=== PATIENT | male | born 1935 | race Caucasian/White ===

== ENCOUNTER 2016-10-07 15:45 | Emergency (ER) | payer OTHER ==
[~2016-10-07] VITALS: Ht 182.9 cm; Wt 110.0 kg
[~2016-10-07 15:45] MED LIST: LEVO.1 PO
[2016-10-07 15:49] VITALS: BP 133/74; PULSE 93; RESP 16; TEMP 97.9; O2SAT 93
--- NOTE | 2016-10-07 15:55 | PD ---
HPI Chief Complaint: Chest Pain Time Seen by Provider: 15:55 Travel History International Travel<30 days: No Contact w/Intl Traveler<30days: No Traveled to known affect area: No History of Present Illness HPI 81-year-old male came to the emergency room with his for left-sided chest pain which occurred after he fell due to tripping and landing on the left side of his chest on ground. This happened at 1 PM. Since then the pain has been progressively worsening. Currently the pain worsens on movement or taking a deep breath. He is splinting his left side of the chest wall by holding it with his hand. He says that helps a little. Patient is on 1 baby aspirin daily. No history of head injury. No history of headache or neck pain. Patient took one nitroglycerin after the incidence happened since he has history of coronary artery disease and thought he should take a nitroglycerin. [facility] Past Medical History Narrative Medical List of his past medical and social history was reviewed from the nursing note. Arthritis: Yes Asthma: Yes Blood Disorders: No Cardiovascular Problems: Yes Endocrine: No GERD: Yes Genitourinary: Yes Hiatal Hernia: Yes Hypertension: Yes Immune Disorder: No Kidney Stones: Yes Musculoskeletal: Yes Neurologic: No Psychiatric: No Reproductive: No Respiratory: Yes Past Surgical History Abdominal Surgery: Yes Eye Surgery: Yes Genitourinary Surgery: Yes Social History Alcohol Use: No Tobacco Use: No Substance Use: No Allergies-Medications (Allergen,Severity, Reaction): Coded Allergies: Onion (Verified Allergy, Severe, SWELLING OF EYES AND LIPS, 08/04/11) Codeine (Verified Adverse Reaction, Severe, UNKNOWN REACTION, 08/04/11) Comments List of his allergies reviewed from the nursing note. Reported Meds & Prescriptions Reported Meds & Active Scripts Active Hydrocodone-Acetaminophen 5-325 mg Tab 1 Tab PO Q6H PRN Reported Metformin (Metformin HCl) 500 Mg Tab 500 Mg PO BIDPC With meals Gabapentin 600 Mg Tab 600 Mg PO HS Pravastatin 80 Mg Tab 80 Mg PO DAILY Nitrostat SL (Nitroglycerin) 0.4 Mg Subl 0.4 Mg SL DIRECTED PRN 1 tablet under the tongue as needed for chest pain. Repeat every 5 minutes for a total of 3 DOSES or call 911 if NO relief. Aspirin EC (Aspirin) 81 Mg Tabdr 81 Mg PO DAILY Finasteride 5 Mg Tab 5 Mg PO DAILY Do not crush. Tamsulosin (Tamsulosin HCl) 0.4 Mg Cap 0.4 Mg PO HS Allopurinol 100 Mg Tab 100 Mg PO DAILY Enalapril (Enalapril Maleate) 20 Mg Tab 20 Mg PO DAILY Levothyroxine (Levothyroxine Sodium) 137 Mcg Tab 137 Mcg PO DAILY Narrative Medication List of his home medications reviewed from the nursing note. Review of Systems Except as stated in HPI: all other systems reviewed are Neg Physical Exam Narrative GENERAL: Awake, alert, elderly, moderate to significant distress SKIN: Warm and dry. HEAD: Atraumatic. Normocephalic. EYES: Pupils equal and round. No scleral icterus. No injection or drainage. ENT: No nasal bleeding or discharge. Mucous membranes pink and moist. NECK: Trachea midline. No JVD. CARDIOVASCULAR: Regular rate and rhythm. No murmur appreciated. RESPIRATORY: No accessory muscle use. Clear to auscultation. Breath sounds equal bilaterally. Severely Tender on the left lateral chest wall on palpation GASTROINTESTINAL: Abdomen soft, non-tender, nondistended. Hepatic and splenic margins not palpable. MUSCULOSKELETAL: No obvious deformities. No clubbing. No cyanosis. No edema. NEUROLOGICAL: Awake and alert. No obvious cranial nerve deficits. Motor grossly within normal limits. Normal speech. PSYCHIATRIC: Appropriate mood and affect; insight and judgment normal. Data Data Last Documented VS Vital Signs Date Time Temp Pulse Resp B/P Pulse Ox O2 Delivery O2 Flow Rate FiO2 10/07/16 18:14 98.2 88 18 138/84 98 10/07/16 16:12 Room Air Orders Basic Metabolic Panel (Bmp) (10/07/16 16:05) Complete Blood Count With Diff (10/07/16 16:05) Prothrombin Time / Inr (Pt) (10/07/16 16:05) Act Partial Throm Time (Ptt) (10/07/16 16:05) Type And Screen (10/07/16 16:05) Iv Access Insert/Monitor (10/07/16 16:05) Ecg Monitoring (10/07/16 16:05) Oximetry (10/07/16 16:05) Oxygen Administration (10/07/16 16:05) Sodium Chloride 0.9% Flush (Ns Flush) (10/07/16 16:15) Morphine Inj (Morphine Inj) (10/07/16 16:15) Ct Abd/Pel W/O Iv Contrast (10/07/16 ) Ct Thorax/ Chest Wo Iv Contras (10/07/16 ) Resp Incentive Spirometry (10/07/16 ) Electrocardiogram (10/07/16 15:57) Labs Laboratory Tests Test 10/07/16 16:15 White Blood Count 7.0 TH/MM3 Red Blood Count 4.60 MIL/MM3 Hemoglobin 14.2 GM/DL Hematocrit 41.2 % Mean Corpuscular Volume 89.6 FL Mean Corpuscular Hemoglobin 30.9 PG Mean Corpuscular Hemoglobin 34.5 % Concent Red Cell Distribution Width 13.6 % Platelet Count 147 TH/MM3 Mean Platelet Volume 8.7 FL Neutrophils (%) (Auto) 65.5 % Lymphocytes (%) (Auto) 17.4 % Monocytes (%) (Auto) 7.6 % Eosinophils (%) (Auto) 8.6 % Basophils (%) (Auto) 0.9 % Neutrophils # (Auto) 4.6 TH/MM3 Lymphocytes # (Auto) 1.2 TH/MM3 Monocytes # (Auto) 0.5 TH/MM3 Eosinophils # (Auto) 0.6 TH/MM3 Basophils # (Auto) 0.1 TH/MM3 CBC Comment DIFF FINAL Differential Comment Prothrombin Time 10.8 SEC Prothromb Time International 1.0 RATIO Ratio Activated Partial 25.7 SEC Thromboplast Time Sodium Level 144 MEQ/L Potassium Level 4.2 MEQ/L Chloride Level 106 MEQ/L Carbon Dioxide Level 30.4 MEQ/L Anion Gap 8 MEQ/L Blood Urea Nitrogen 18 MG/DL Creatinine 1.36 MG/DL Estimat Glomerular Filtration 50 ML/MIN Rate Random Glucose 112 MG/DL Calcium Level 8.7 MG/DL Blood Type A POSITIVE Antibody Screen NEGATIVE [facility] Medical Decision Making Medical Screen Exam Complete: Yes Emergency Medical Condition: Yes Medical Record Reviewed: Yes Interpretation(s) Twelve-lead EKG was reviewed by me. Normal sinus rhythm, left axis deviation, old inferior and anterior AR, nonspecific ST-T wave changes. Heart rate of 87 bpm. Differential Diagnosis Rib fracture, pneumothorax, chest wall contusion, splenic laceration Narrative Course 4:28 PM given the site of his injury and tenderness I have ordered a CT of his chest as well as CT of his abdomen and pelvis to rule out rib fracture, lung contusion, pneumothorax, hemothorax and splenic laceration. Patient has been medicated for pain. Awaiting for the blood test results and the CAT scan to be done and resulted. 5:43 PM patient has a nondisplaced left rib fracture. This corresponds with his physical exam. I've ordered an incentive spirometer. I will discharge the patient home on pain medication prescription. Procedures EKG Prior to Arrival: Yes Diagnosis Primary Impression: Rib fracture Qualified Code: S22.32XA - Closed fracture of one rib of left side, initial encounter Additional Impressions: Blunt chest trauma Qualified Code: S29.8XXA - Blunt chest trauma, initial encounter Fall Qualified Code: W19.XXXA - Fall, initial encounter Referrals: Primary Care Physician 2 days Additional Instructions: Please take the medication as per the prescription direction. Use the incentive spirometer that has been given to you as per the directions every half an hour. Please return to the ER if the condition worsens or any other concerns. Do not drive while on the pain medication since it'll make you groggy. Follow-up with your primary care in couple days. Med/Other Pt SpecificInfo: Prescription(s) given Scripts Hydrocodone-Acetaminophen 5-325 mg Tab1 Tab PO Q6H PRN (PAIN) #20 TAB Ref 0 Prov:John Canseco MD 10/07/16 Disposition: 01 DISCHARGE HOME Condition: Stable John Canseco MD Oct 07, 2016 15:55 John Canseco MD Oct 07, 2016 15:55
[2016-10-07 15:57] VITALS: BP 175/85; PULSE 88; RESP 18; TEMP 98.3; O2SAT 96
[2016-10-07] MEDS ORDERED: FINA5TAB2 PO (16:08)
[2016-10-07] MEDS ORDERED: GABA600T PO (16:08)
[2016-10-07] MEDS ORDERED: PRAV80TA2 PO (16:08)
[2016-10-07] MEDS ORDERED: TAMS0.4C4 PO (16:08)
[2016-10-07] MEDS ORDERED: LEVO137T2 PO (16:08)
[2016-10-07] MEDS ORDERED: ALLO100T PO (16:08)
[2016-10-07] MEDS ORDERED: NITR0.4S SL (16:08)
[2016-10-07] MEDS ORDERED: ASPI81TA11 PO (16:08)
[2016-10-07] MEDS ORDERED: ENAL20TA PO (16:08)
[2016-10-07] MEDS ORDERED: METF500T PO (16:08)
[2016-10-07 16:12] VITALS: RESP 18; O2SAT 94
[2016-10-07] MEDS ORDERED: MORPHINE SULFATE 4 MG/ML INJ IV PUSH ONE (16:15)
[2016-10-07] MEDS ORDERED: SODIUM CHLORIDE 0.9% FLUSH 5 ML FLUSH IVF PRN (16:15)
[2016-10-07 16:42] LABS: AUTOMATED NEUTROPHIL # 4.6 TH/MM3 (1.8-7.7); BASOPHIL # 0.1 TH/MM3 (0-0.2); BASOPHIL % 0.9 % (0.0-2.0); EOSINOPHIL # 0.6 TH/MM3 (0-0.4); EOSINOPHIL % 8.6 % (0.0-4.0); HEMATOCRIT 41.2 % (39.0-51.0); HEMO FLAGS DIFF FINAL; LYMPH % 17.4 % (9.0-44.0); LYMPHOCYTE # 1.2 TH/MM3 (1.0-4.8); MEAN CELL VOLUME 89.6 FL (80.0-100.0); MEAN CORPUSCULAR HEMOGLOBIN 30.9 PG (27.0-34.0); MEAN CORPUSCULAR HGB CONC 34.5 % (32.0-36.0); MONO % 7.6 % (0.0-8.0); NEUT % 65.5 % (16.0-70.0); PLATELET COUNT 147 TH/MM3 (150-450); RED CELL DISTRIBUTION WIDTH 13.6 % (11.6-17.2)
[2016-10-07 16:53] LABS: APTT (PATIENT) 25.7 SEC (24.3-30.1); PROTHROMBIN TIME - PATIENT 10.8 SEC (9.8-11.6)
--- NOTE | 2016-10-07 16:55 | RADRPT ---
EXAM DATE/TIME: 10/07/2016 16:28 [facility] COMPARISON: No previous studies available for comparison. INDICATIONS : Trauma; slip and fall, left sided pain. RADIATION DOSE: 19.26 CTDIvol (mGy) ; Combined studies - Thorax/Abdomen/Pelvis MEDICAL HISTORY : Hypertension. Renal calculi. Hernia, hiatal. AAA. SURGICAL HISTORY : None. ENCOUNTER: Initial ACUITY: 1 day PAIN SCALE: 5/10 LOCATION: Left chest TECHNIQUE: Volumetric scanning of the chest was performed. Using automated exposure control and adjustment of t he mA and/or kV according to patient size, radiation dose was kept as low as reasonably achievable to obtain optimal diagnostic quality images. FINDINGS: There is minimal dependent atelectasis at the lung bases. No pleural or pericardial effusion. No medi astinal hematoma. Moderate to severe coronary calcifications. Questionable nondisplaced left lower an terior rib fracture. No pneumothorax. CONCLUSION: 1. Questionable nondisplaced left lower anterior rib fracture. No acute findings within the thorax. M oderate to severe coronary calcifications. Javon Ingram MD on October 07, 2016 at 16:48 Board Certified Radiologist. This report was verified electronically.
--- NOTE | 2016-10-07 16:57 | RADRPT ---
EXAM DATE/TIME: 10/07/2016 16:28 [facility] COMPARISON: No previous studies available for comparison. INDICATIONS : Trauma; slip and fall, left sided pain. ORAL CONTRAST: No oral contrast ingested. RADIATION DOSE: 19.26 CTDIvol (mGy) ; Combined studies - Thorax/Abdomen/Pelvis MEDICAL HISTORY : Hypertension. Hernia, hiatal. Renal calculi.AAA. SURGICAL HISTORY : None. ENCOUNTER: Initial ACUITY: 1 day PAIN SCALE: 8/10 LOCATION: Left abdomen. TECHNIQUE: Volumetric scanning of the abdomen and pelvis was performed. Using automated exposure control and ad justment of the mA and/or kV according to patient size, radiation dose was kept as low as reasonably achievable to obtain optimal diagnostic quality images. FINDINGS: Lung bases are relatively clear except minimal atelectasis. No acute findings in the liver, spleen, a drenals or pancreas. Previous cholecystectomy. Bilateral renal cysts noted. No free fluid. No retroperitoneal hematoma. There is colonic diverticulosis without evidence for dive rticulitis. Previous fusion lower lumbar spine. No acute bony abnormalities. CONCLUSION: 1. No acute findings within the abdomen and pelvis. Small hiatal hernia. Cholecystectomy. Bilateral r enal cysts. Colonic diverticulosis. Javon Ingram MD on October 07, 2016 at 16:54 Board Certified Radiologist. This report was verified electronically.
[2016-10-07 17:10] LABS: BICARBONATE 30.4 MEQ/L (21.0-32.0); POTASSIUM 4.2 MEQ/L (3.5-5.1)
[2016-10-07] MEDS ORDERED: HYDR-3516 PO (17:45)
[2016-10-07 18:14] VITALS: BP 138/84; TEMP 98.2
--- NOTE | 2016-10-08 14:55 | EKG ---
Date Performed: 10/07/2016 Time Performed: 15:57:19 PTAGE: 81 years EKG: Sinus rhythm MARKED LEFT AXIS DEVIATION MODERATE VOLTAGE CRITERIA FOR LVH, CONSIDER NORMAL VARIANT POSSIBLE ANTER IOR MYOCARDIAL INFARCTION When compared to previous tracing, axis more leftward, otherwise No signifi cant change. ABNORMAL ECG PREVIOUS TRACING : 10/30/2011 08.09 DOCTOR: Gabino Ruiz Interpretating Date/Time 10/08/2016 15:40:52
== END 2016-10-07 19:13 | disposition home or self-care (01) ==
LOC: NEPE 15:45
DX: S22.32XA Fracture of one rib, left side, initial encounter for closed fracture (principal); S29.8XXA Other specified injuries of thorax, initial encounter; R94.31 Abnormal electrocardiogram [ECG] [EKG]; I25.10 Atherosclerotic heart disease of native coronary artery without angina pectoris; I10 Essential (primary) hypertension; Z79.82 Long term (current) use of aspirin; Z87.39 Personal history of other diseases of the musculoskeletal system and connective tissue; Z87.09 Personal history of other diseases of the respiratory system; Z86.79 Personal history of other diseases of the circulatory system; Z87.19 Personal history of other diseases of the digestive system; Z87.448 Personal history of other diseases of urinary system; W01.0XXA Fall on same level from slipping, tripping and stumbling without subsequent striking against object, initial encounter
CPT/HCPCS: 71250; 74176; 80048; 85025; 85610; 85730; 86850; 86900; 86901; 93005; 96374; 99284; J2270

== ENCOUNTER → 2016-11-02 | Outpatient (CLI) | payer OTHER ==
[~2016-11-02] MED LIST changes: +ALLO100T PO; +ASPI81TA11 PO; +ENAL20TA PO; +FINA5TAB2 PO; +GABA600T PO; +HYDR-3516 PO; -LEVO.1 PO; +LEVO137T2 PO; +METF500T PO; +NITR0.4S SL; +PRAV80TA2 PO; +TAMS0.4C4 PO
--- NOTE | 2016-11-10 12:45 | RSPPFT ---
DATE OF PROCEDURE: 11/02/16 COMMENTS: VOLUMES DYNAMIC: FVC and FEV1 mildly reduced. STATIC: RV mildly increased; VTG and TLC normal. FLOWS: FEV1% mildly reduced; FEF 25-75 severely reduced. DIFFUSION: Normal. FLOW VOLUME LOOP: Terminal airflow obstruction. IMPRESSION: Mild obstructive ventilatory defect with mild hyperinflation and normal diffusion. There is significant improvement post-bronchodilator consistent with an asthmatic problem.
== END ==
LOC: HRSP 13:18
PROVIDERS: ATTEND Internal Medicine
DX: J45.909 Unspecified asthma, uncomplicated (principal)
CPT/HCPCS: 94060; 94620; 94726; 94729

== ENCOUNTER 2016-12-27 05:34 | Observation (INO) | payer OTHER ==
[2016-12-27] VITALS (7 sets, daily range): BP systolic 157–193; BP diastolic 82–104; PULSE 69–85; RESP 12–20; TEMP 96–97.6; O2SAT 54–96
[~2016-12-27] VITALS: Ht 182.9 cm; Wt 105.0 kg
[~2016-12-27 05:34] MED LIST changes: -HYDR-3516 PO
[2016-12-27] MEDS ORDERED: POVIDONE IODINE 5% (ANTISEPSIS KIT) 4 APPLICATIONS EACH NARE PRN (06:00)
[2016-12-27] MEDS ORDERED: CHLORHEXIDINE GLUCONATE 2 % 1 PACK (2 CLOTHS) TOPICAL PRN (06:00)
[2016-12-27] MEDS ORDERED: METOPROLOL TARTRATE 25 MG TAB PO PRN (06:00)
[2016-12-27] MEDS ORDERED: SODIUM CHLORID 0.9% 500 ML IV PRN (06:00)
[2016-12-27] MEDS ORDERED: INSULIN HUMAN REGULAR 1,000 UNITS/10 ML VIAL SQ PRN (06:00)
[2016-12-27] MEDS: LACTATED RINGER'S 1000 ML IV PRN ×2 (06:30→09:17)
[2016-12-27] MEDS: AMPICILLIN/SULBAC 3 GM/NS 100 ML IV SCH ×4 (06:49→09:16)
[2016-12-27] MEDS ORDERED: MIDAZOLAM HCL 2 MG/2 ML VIAL ONE (06:57)
[2016-12-27] MEDS ORDERED: fentaNYL CITRATE 250 MCG/5 ML AMP ONE (06:57)
[2016-12-27] MEDS ORDERED: ACETAMINOPHEN 1000 MG/100 ML VIAL IV ONE (06:57)
[2016-12-27] MEDS ORDERED: BACITRACIN TOP OINT 15 GM TUBE ONE (07:05)
[2016-12-27] MEDS ORDERED: OXYMETAZOLINE HCL 0.05% 15 ML NASAL SPRAY ONE (07:05)
[2016-12-27] MEDS ORDERED: LIDOCAINE 1%/EPINEPHrine 1:100,000 SOLN 20 ML VIAL ONE ×2 (07:05→07:13)
[2016-12-27] MEDS ORDERED: HYDROCORTISONE SOD SUCCINATE 100 MG VIAL ONE (07:24)
[2016-12-27] MEDS ORDERED: ONDANSETRON HCL 4 MG/2 ML VIAL IV PUSH PRN (09:00)
[2016-12-27] MEDS ORDERED: ACETAMINOPHEN/HYDROcodone 325 MG/5 MG TAB PO PRN (09:00)
[2016-12-27] MEDS: LACTATED RINGER'S 1000 ML INJ 1,000 ML IV SCH ×2 (09:10→21:30)
[2016-12-27] MEDS ORDERED: PROPOFOL 200 MG/20 ML AMP IV ONE (12:00)
[2016-12-27] MEDS ORDERED: ONDANSETRON HCL 4 MG/2 ML VIAL IV PUSH ONE (12:00)
[2016-12-27] MEDS ORDERED: ePHEDrine/NS 25 MG/5 ML SYR IV ONE (12:00)
[2016-12-27] MEDS ORDERED: LACTATED RINGER'S 1000 ML INJ 1,000 ML IV ONE (12:00)
[2016-12-27] MEDS ORDERED: PRAVASTATIN SOD 80 MG TAB PO SCH (12:50)
[2016-12-27] MEDS ORDERED: FINASTERIDE 5 MG TAB PO SCH (12:52)
[2016-12-27] MEDS ORDERED: NITROGLYCERIN 0.4 MG SL 25 TABS/BTL SL PRN (13:00)
[2016-12-27] MEDS ORDERED: ENALAPRIL MALEATE 10 MG TAB PO ONE (13:00)
[2016-12-27] MEDS: GABAPENTIN 300 MG CAP PO SCH ×2 (14:31→18:12)
[2016-12-27] MEDS: AMPICILLIN/SULBAC 1500 MG/NS 100 ML IV SCH ×4 (15:56→23:27)
[2016-12-27] MEDS: metFORMIN HCL 500 MG TAB PO SCH ×2 (18:00→18:13)
[2016-12-27] MEDS ORDERED: TAMSULOSIN HCL 0.4 MG CAP PO SCH (21:00)
[2016-12-28 00:05] VITALS: BP 163/84; PULSE 68; RESP 17; TEMP 97; O2SAT 98
[2016-12-28] MEDS ORDERED: LEVOTHYROXINE SODIUM 25 MCG TAB PO SCH (06:00)
[2016-12-28] MEDS ORDERED: LEVOTHYROXINE SODIUM 112 MCG TAB PO SCH (06:00)
[2016-12-28] MEDS: AMPICILLIN/SULBAC 1500 MG/NS 100 ML IV SCH ×2 (07:00)
[2016-12-28] MEDS ORDERED: ENALAPRIL MALEATE 10 MG TAB PO SCH (09:00)
[2016-12-28] MEDS ORDERED: ALLOPURINOL 100 MG TAB PO SCH (09:00)
--- NOTE | 2017-01-08 07:20 | MP ---
cc: EBEN LEWIS M.D. DATE OF OPERATION December 27, [address] Eben Lewis PREOPERATIVE DIAGNOSES 1. Chronic pansinusitis. 2. Sinonasal polyposis. 3. Nasal airway obstruction. 4. Nasal septal deviation. 5. Hypertrophy of inferior turbinates. POSTOPERATIVE DIAGNOSES 1. Chronic pansinusitis. 2. Sinonasal polyposis. 3. Nasal airway obstruction. 4. Nasal septal deviation. 5. Hypertrophy of inferior turbinates. OPERATION PERFORMED 1. Open repair of nasal septal fracture. 2. Bilateral submucosal resection of inferior turbinates. 3. Bilateral endoscopic debridement of nasal polyps. INDICATIONS Documented in the history and physical. DESCRIPTION OF OPERATION The patient was taken to OR #6 and placed in the supine position. Following induction of general anesthesia and intubation, the nose was packed bilaterally with cotton pledgets saturated in 0.05% oxymetazoline. The nasal septum and inferior turbinates were injected with a total of 60 mL of 1% Xylocaine with epinephrine 1:100,000. He was then prepped and draped for surgery. Nasal packing was removed and a hemitransfixion incision was made in the left nasal vestibule and through this incision the mucosa of septum was elevated bilaterally as far as the junction of the bony and cartilaginous septum. This revealed very thick, twisted and irregular quadrangular cartilage with evidence of old septal fracture. A cumulative area of 2 x 2.5 cm of quadrangular cartilage was removed, preserving 1.5 cm dorsal and caudal struts. The mucosa was then elevated from the bony septum and the maxillary crest. The bony septum was removed using Salisbury-Ornelas forceps and Ashok septal forceps. The maxillary crest was removed using a 6-mm Sallie chisel. The incision was then closed with a running suture of 4-0 chromic and the mucosal layers of the septum were approximated to each other with a quilting stitch of 4-0 plain gut. The inferior turbinates were addressed next. These were fractured out medially and stab incisions were made along their inferior surfaces and through these incisions the submucosal soft tissue was reduced using a curette and preserving the conchal bone and soft tissue was reduced approximately 30%. The incision was then cauterized using the suction Bovie at 35 mccarthy. The remnants of the inferior turbinates were then we lateralized to the lateral nasal wall. When this was completed, there was ample access to the posterior nasal vault which was obstructed bilaterally by polypoid tissue prolapsing from the middle and superior meatus. Large biopsies were obtained from these polyps bilaterally and were submitted labeled left and right for histological examination. The remainder of the polypoid tissue was removed using powered microdebrider until the nasal vault was completely patent. The nose was then irrigated with chilled saline. The superior nasal vault was filled with Stammberger sinus foam and the inferior half was packed with Merocel tampons coated in bacitracin ointment. The procedure was then terminated. The patient was reversed from anesthesia and taken to Recovery in good condition. There were no complications. Blood loss was 200 mL. Eben Lewis MD [facility] /10:13 AM /7:16 AM
== END 2016-12-28 07:18 | disposition home or self-care (01) ==
LOC: HSDC 05:34 → N06B 09:59
PROVIDERS: ADMIT Otolaryngology; ATTEND Otolaryngology
DX: J32.4 Chronic pansinusitis (principal); J33.9 Nasal polyp, unspecified; J98.8 Other specified respiratory disorders; J34.2 Deviated nasal septum; J34.3 Hypertrophy of nasal turbinates; I10 Essential (primary) hypertension; E78.5 Hyperlipidemia, unspecified; E11.40 Type 2 diabetes mellitus with diabetic neuropathy, unspecified; K21.9 Gastro-esophageal reflux disease without esophagitis; E66.9 Obesity, unspecified; E03.9 Hypothyroidism, unspecified; J45.909 Unspecified asthma, uncomplicated; Z68.31 Body mass index [BMI] 31.0-31.9, adult; Z88.5 Allergy status to narcotic agent; Z91.018 Allergy to other foods; Z79.84 Long term (current) use of oral hypoglycemic drugs
CPT/HCPCS: 00160; 21325; 30140; 31237; 88304; 88311; 94762; G0378; J0131; J0295; J2405; J3010; J7120; J1720; J2250

== ENCOUNTER 2017-08-28 16:42 | Inpatient (IN) | payer OTHER, MEDICARE ==
[2017-08-28] VITALS (15 sets, daily range): BP systolic 142–200; BP diastolic 69–93; PULSE 57–67; RESP 16–22; TEMP 97.9; O2SAT 92–98
[2017-08-28] MEDS: ONDANSETRON HCL 4 MG/2 ML VIAL IV PUSH PRN
[~2017-08-28 16:42] MED LIST changes: -ASPI81TA11 PO; +ASPI81TA23 PO; +IODIXANOL 320 MG/ML 50 ML VIAL (for RAD SPEC) I-ARTERIAL ONE
[2017-08-28] MEDS ORDERED: SODIUM CHLOR 0.9% 1000 ML INJ 1,000 ML IV ONE (16:48)
--- NOTE | 2017-08-28 17:04 | RADRPT ---
EXAM DATE/TIME: 08/28/2017 16:54 [facility] COMPARISON: No previous studies available for comparison. INDICATIONS : Stroke alert, expressive aphasia, right side weakness. RADIATION DOSE: 39.68 CTDIvol (mGy) These findings were called by Dr. aLu to Dr. Ariza in the emergency room at 1701 hrs. MEDICAL HISTORY : Non-responsive. SURGICAL HISTORY : Non-responsive. ENCOUNTER: Initial ACUITY: 1 day PAIN SCALE: Non-responsive LOCATION: cranial TECHNIQUE: Multiple contiguous axial images were obtained of the head. Using automated exposure control and adj ustment of the mA and/or kV according to patient size, radiation dose was kept as low as reasonably a chievable to obtain optimal diagnostic quality images. DICOM format image data is available electro nically for review and comparison. FINDINGS: CEREBRUM: The ventricles are normal for age. No evidence of midline shift, mass lesion, hemorrhage or acute in farction. No extra-axial fluid collections are seen. POSTERIOR FOSSA: The cerebellum and brainstem are intact. The 4th ventricle is midline. The cerebellopontine angle i s unremarkable. EXTRACRANIAL: The visualized portion of the orbits is intact. SKULL: The calvaria is intact. No evidence of skull fracture. CONCLUSION: 1. Small chronic area of encephalomalacia involving the left frontal lobe. 2. No acute hemorrhage or mass effect. Girma Lau MD on August 28, 2017 at 16:59 Board Certified Radiologist. This report was verified electronically.
[2017-08-28 17:09] LABS: AUTOMATED NEUTROPHIL # 5.3 TH/MM3 (1.8-7.7); BASOPHIL # 0.1 TH/MM3 (0-0.2); EOSINOPHIL # 0.3 TH/MM3 (0-0.4); EOSINOPHIL % 3.6 % (0.0-4.0); HEMATOCRIT 40.5 % (39.0-51.0); HEMOGLOBIN 13.8 GM/DL (13.0-17.0); LYMPH % 22.6 % (9.0-44.0); LYMPHOCYTE # 1.9 TH/MM3 (1.0-4.8); MEAN CELL VOLUME 92.1 FL (80.0-100.0); MEAN CORPUSCULAR HEMOGLOBIN 31.5 PG (27.0-34.0); MEAN CORPUSCULAR HGB CONC 34.2 % (32.0-36.0); MEAN PLATELET VOLUME 8.6 FL (7.0-11.0); MONOCYTE # 0.7 TH/MM3 (0-0.9); NEUT % 63.8 % (16.0-70.0); PLATELET COUNT 155 TH/MM3 (150-450); RED BLOOD COUNT 4.39 MIL/MM3 (4.50-5.90); RED CELL DISTRIBUTION WIDTH 13.9 % (11.6-17.2); WHITE BLOOD COUNT 8.3 TH/MM3 (4.0-11.0)
--- NOTE | 2017-08-28 17:25 | PD.CONS ---
History of Present Illness Service Neurology Consult Requested By er Reason for Consult stroke alert Primary Care Physician Unknown History of Present Illness 81 y/o m comes to er as a stroke alert. onset approx <1 hr prior to arrival .was driving when suddenly his rt side become weak. next to him and verifies hx. no hx of known stroke to them. not on any bloodthinners. no hx of sz. ct brain- old left frontal infarct. glucose 132 denies any headache/dyspnea/cp. no hx of afib. Past Medical History Arthritis: Yes Asthma: Yes Blood Disorders: No Cardiovascular Problems: Yes Endocrine: No GERD: Yes Genitourinary: Yes Hiatal Hernia: Yes Hypertension: Yes Respiratory: Yes Past Surgical History Abdominal Surgery: Yes Eye Surgery: Yes Genitourinary Surgery: Yes Social History Alcohol Use: No Tobacco Use: No Substance Use: No Allergies-Medications (Allergen,Severity, Reaction): Coded Allergies: Onion (Verified Allergy, Severe, SWELLING OF EYES AND LIPS, 08/04/11) Codeine (Verified Adverse Reaction, Severe, UNKNOWN REACTION, 08/04/11) Comments List of his allergies reviewed from the nursing note. Reported Meds & Prescriptions Reported Meds & Active Scripts Active Hydrocodone-Acetaminophen 5-325 mg Tab 1 Tab PO Q6H PRN Reported Metformin (Metformin HCl) 500 Mg Tab 500 Mg PO BIDPC With meals Gabapentin 600 Mg Tab 600 Mg PO HS Pravastatin 80 Mg Tab 80 Mg PO DAILY Nitrostat SL (Nitroglycerin) 0.4 Mg Subl 0.4 Mg SL DIRECTED PRN 1 tablet under the tongue as needed for chest pain. Repeat every 5 minutes for a total of 3 DOSES or call 911 if NO relief. Aspirin EC (Aspirin) 81 Mg Tabdr 81 Mg PO DAILY Finasteride 5 Mg Tab 5 Mg PO DAILY Do not crush. Tamsulosin (Tamsulosin HCl) 0.4 Mg Cap 0.4 Mg PO HS Allopurinol 100 Mg Tab 100 Mg PO DAILY Enalapril (Enalapril Maleate) 20 Mg Tab 20 Mg PO DAILY Levothyroxine (Levothyroxine Sodium) 137 Mcg Tab 137 Mcg PO DAILY Review of Systems Except as stated in HPI: all other systems reviewed are Neg Review of Systems All other ROS: ROS reviewed as documented in chart Past Family Social History Allergies: Coded Allergies: onion (Unverified Allergy, Severe, SWELLING OF EYES AND LIPS, 08/28/17) codeine (Unverified Adverse Reaction, Severe, UNKNOWN REACTION, 08/28/17) Active Ordered Medications Current Medications Medications (Trade) Dose Ordered Sig/Kaye Route Start Time Stop Time Status Last Admin Sodium Chloride 1,000 ml @ 70 mls/hr [id number] ONCE IV 08/28/17 16:48 08/29/17 07:05 Exam I&O / VS Vital Signs Date Time Temp Pulse Resp B/P (MAP) Pulse Ox O2 Delivery O2 Flow Rate FiO2 08/28/17 17:07 61 18 181/92 (121) 92 Room Air 08/28/17 16:51 96 Room Air 08/28/17 16:51 96 Room Air 08/28/17 16:45 97.9 65 18 172/82 (112) 98 General: Alert and Oriented, No acute distress Eye: EOMI Respiratory: Lungs CTA, Non-labored respirations Cardiology: Normal rate Neurologic: Alert Psychiatric: Cooperative Exam Comments ox 3, slwo speech/dysfluency but articulate, able to name objects and follow. eomi, no gaze preference, face sym, vff, rt hemiplegia 0/5 strength, maria dolores le reduced pin (hx of neuropathy), dysmetria proportional to level of weakness in ue, nihss 8 Review/Management Diagnosis/Plan: (1) Acute ischemic left MCA stroke ICD Codes: I63.512 - Cerebral infarction due to unspecified occlusion or stenosis of left middle cerebral artery Status: Acute Plan: acute left lacunar infarct, probably left mca previous left frontal infarct r/o left mca stenosis/carotid dz/small vessel vs afib recs iv tpa d/w pt and spouse. would like to proceed with tx. understand risk of 6% ich, systemic bleeding. alternatives d/w. bp 178/93 at time of iv bolus bp <180/100; nicardipine gtt as needed. no blood thinners post tpa protocol isc admission stat cta's to r/o large vessel occlusion mri/echo scd's f/u exam over 90 minutes spent on image review/re-examine/discussion with md (2) Chronic ischemic left MCA stroke ICD Codes: I69.30 - Unspecified sequelae of cerebral infarction Status: Chronic (3) HTN (hypertension) ICD Codes: I10 - Essential (primary) hypertension Status: Chronic Problem Qualifiers (1) HTN (hypertension): Qualified Codes: I10 - Essential (primary) hypertension Quoc Harrington MD Aug 28, 2017 17:25
[2017-08-28 17:28] LABS: PROTHROMBIN TIME - PATIENT 10.6 SEC (9.8-11.6)
[2017-08-28] MEDS ORDERED: ALTEPLASE BOLUS 9 MG/9 ML SYR IV ONE (17:30)
[2017-08-28] MEDS ORDERED: MISCELLANEOUS NURSING INFORMATION XX PRN (17:30)
[2017-08-28] MEDS ORDERED: ALTEPLASE DRIP 81 MG in SYRINGE/BAG 1 EA IV ONE (17:30)
[2017-08-28] MEDS ORDERED: SODIUM CHLORIDE 0.9% 50 ML BAG IVF ONE (17:30)
[2017-08-28] MEDS ORDERED: niCARdipine INJ 25 MG in SODIUM CHLOR 0.9% 250 ML INJ 240 ML IV PRN (17:30)
[2017-08-28 17:39] LABS: TROPONIN I LESS THAN 0.02 NG/ML (0.02-0.05)
[2017-08-28] MEDS ORDERED: FINA5TAB2 PO (17:54)
[2017-08-28] MEDS ORDERED: AMLO5TAB2 PO (17:54)
[2017-08-28] MEDS ORDERED: LEVO137T2 PO (17:54)
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
[2017-08-28 18:24] LABS: BILIRUBIN, URINE NEG (NEG); BLOOD, URINE NEG (NEG); GLUCOSE,URINE NEG (NEG); KETONE, URINE NEG (NEG); MUCUS URINE FEW /lpf (OCC); NITRITE,URINE NEG (NEG); URINE COLOR LIGHT-YELLOW (YELLW/STRAW); URINE LEUKOCYTE ESTERASE LARGE (NEG); WHITE BLOOD CELL CLUMPS RARE
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
[2017-08-28] MEDS ORDERED: CHLORHEXIDINE GLUCONATE 2 % 1 PACK (2 CLOTHS) TOP PRN (18:45)
[2017-08-28] MEDS ORDERED: SENNOSIDES 8.6 MG TAB PO PRN (18:45)
[2017-08-28] MEDS ORDERED: MAGNESIUM HYDROXIDE SUSP 30 ML CUP PO PRN (18:45)
[2017-08-28] MEDS ORDERED: BISACODYL 10 MG SUPP RECTAL PRN (18:45)
[2017-08-28] MEDS ORDERED: LACTULOSE SYRUP 20 GM/30 ML CUP PO PRN (18:45)
[2017-08-28] MEDS ORDERED: RESP: ALBUTEROL 2.5 MG/IPRATROPIUM 0.5 MG NEB (PRN) INH (18:45)
[2017-08-28] MEDS ORDERED: MISCELLANEOUS NURSING INFORMATION XX SCH (18:45)
[2017-08-28] MEDS ORDERED: SODIUM CHLORIDE 0.9% FLUSH 10 ML FLUSH IV FLUSH PRN (18:45)
[2017-08-28 19:07] LABS: CHOLESTEROL 183 MG/DL (120-200)
--- NOTE | 2017-08-28 19:10 | RADRPT ---
EXAM DATE/TIME: 08/28/2017 18:11 [facility] COMPARISON: No previous studies available for comparison. INDICATIONS : Cerebrovascular accident. MEDICAL HISTORY : Gastroesophageal reflux disease. Hypertension. Aneurysm, abdominal. Thyroid disease. Hearing loss. As thma. Hiatal hernia. Renal calculi. Osteoarthritis. Diabetes. Neuropathy. SURGICAL HISTORY : Cholecystectomy. Appendectomy. Tonsillectomy. Right shoulder surgery. Left knee surgery. Bilateral ca taract removal. ENCOUNTER: Initial ACUITY: 1 day PAIN SCORE: 0/10 LOCATION: Bilateral neck PEAK SYSTOLIC VELOCITIES (cm/sec): ICA/CCA RATIO: Right: 5.7 Left: 0.9 ICA: Right: 322 Left: 72 CCA: Right: 57 Left: 77 ECA: Right: 93 Left: 81 VERTEBRAL: Right: 52 antegrade Left: 51 antegrade Elevated flow velocities and ICA/CCA ratios have been found to correlate with increased degrees of vessel stenosis, calculated as percentage of diameter relative to a normal segment of distal ICA/CCA FINDINGS: RIGHT CAROTID: Severe plaque seen in the bulb and proximal internal carotid artery. LEFT CAROTID: There is mild plaque at the bulb and proximal internal carotid artery. VERTEBRAL ARTERIES: Antegrade flow is seen in both vertebral arteries. MISCELLANEOUS: None. CONCLUSION: 1. Severe atherosclerosis of the right carotid bifurcation with high-grade and hemodynamically signif icant stenosis of the proximal ICA. 2. Mild atherosclerosis of the left carotid bifurcation without narrowing. River Tejada MD on August 28, 2017 at 19:06 Board Certified Radiologist. This report was verified electronically.
[2017-08-28] MEDS ORDERED: IOHEXOL 350 MG/ML 10 ML VIAL (for RAD DIAG) IVCONTRAST ONE (19:14)
--- NOTE | 2017-08-28 19:23 | RADRPT ---
EXAM DATE/TIME: 08/28/2017 18:43 [facility] COMPARISON: US CAROTID ARTERIES, August 28, 2017, 18:11. CT BRAIN W/O CONTRAST, August 28, 2017, 16:54. INDICATIONS : Stroke Alert- Right sided weakness. IV CONTRAST: 80 cc Omnipaque 350 (iohexol) IV RADIATION DOSE: 10.68 CTDIvol (mGy) ; Combined studies MEDICAL HISTORY : Diabetes mellitus type 2. Hypertension. Hiatal hernia, Asthma, Cardiac. SURGICAL HISTORY : None. ENCOUNTER: Initial ACUITY: 1 day PAIN SCALE: Non-responsive LOCATION: Right cranial TECHNIQUE: Volumetric scanning was performed using a multi-row detector CT scanner. The data was post processed with a variety of visualization algorithms including full volume maximum intensity projection, multi -planar sliding thin slab reformation, curved planar reformation, and surface rendering techniques. Using automated exposure control and adjustment of the mA and/or kV according to patient size, radiat ion dose was kept as low as reasonably achievable to obtain optimal diagnostic quality images. DICO M format image data is available electronically for review and comparison. FINDINGS: Approximately 5 mm long thrombus is seen distally of the left middle cerebral artery, just before the trifurcation. The thrombus is nonocclusive with filling of the branches distal to it demonstrated. N o other vessel thrombosis demonstrated. There is very mild intracranial atherosclerosis. More moderat e atherosclerosis seen of both internal carotid arteries at the level of the skull base but without e vidence of significant narrowing or acute thrombosis at this location. No aneurysm demonstrated. CONCLUSION: Short segment, nonocclusive thrombosis of the left middle cerebral artery. Please see above. River Tejada MD on August 28, 2017 at 19:17 Board Certified Radiologist. This report was verified electronically.
[2017-08-28 19:31] LABS: CHOLESTEROL/ HDL RATIO 4.35 RATIO; LDL CHOLESTEROL 87 MG/DL (0-99); TRIGLYCERIDES 271 MG/DL (42-150)
--- NOTE | 2017-08-28 19:57 | RADRPT ---
EXAM DATE/TIME: 08/28/2017 19:18 [facility] COMPARISON: CT BRAIN W/O CONTRAST, August 28, 2017, 16:54. INDICATIONS : CVA. Post TPA. MEDICAL HISTORY : Hypertension. Diabetes. Thyroid disease. Gout. SURGICAL HISTORY : Fusion, lumbar. Appendectomy. Cholecystectomy. Tonsillectomy. Cataracts. Knee. Nose. Shoulder. ENCOUNTER: Subsequent ACUITY: 1 day PAIN SCORE: 3/10 LOCATION: cranial TECHNIQUE: Multiplanar, multisequence MRI of the brain was performed without contrast. FINDINGS: CEREBRUM: The ventricles are normal for age. No evidence of midline shift, mass lesion, hemorrhage or acute in farction. No extraaxial fluid collections are seen. The pituitary gland and suprasellar cistern are normal in configuration. Small area of encephalomalacia again seen in the left frontal lobe. WHITE MATTER: Mild to moderate scattered small foci of chronic flair signal abnormality seen of both cerebral hemis pheres. POSTERIOR FOSSA: The cerebellum and brainstem are intact. The 4th ventricle is midline. The cerebellopontine angle is unremarkable. The cerebellar tonsils are normal in position. DIFFUSION IMAGING: No focal areas of restricted diffusion are seen. No evidence of acute infarction. EXTRACRANIAL: There is mucoperiosteal thickening and mucus retention cysts of the visualized paranasal sinuses. CONCLUSION: 1. No acute infarct. 2. Old, small left frontal lobe cortical infarct. 3. Mild to moderate chronic white matter changes. 4. Paranasal sinus disease. River Tejada MD on August 28, 2017 at 19:53 Board Certified Radiologist. This report was verified electronically.
--- NOTE | 2017-08-28 19:59 | RADRPT ---
EXAM DATE/TIME: 08/28/2017 19:18 [facility] COMPARISON: CTA BRAIN W 3D RECON, August 28, 2017, 18:43. INDICATIONS : CVA. MEDICAL HISTORY : Hypertension. Diabetes. Thyroid disease. Gout. SURGICAL HISTORY : Fusion, lumbar. Appendectomy. Cholecystectomy. Tonsillectomy. Cataracts. Knee. Nose. Shoulder. ENCOUNTER: Subsequent ACUITY: 1 day PAIN SCORE: 3/10 LOCATION: cranial Please note a normal MRA of the brain does not entirely exclude the possibility of a small aneurysm, nor the possibility of distal intracranial vessel disease. TECHNIQUE: 3D time of flight MRA was performed. Source images, multiplanar STS MIP, and 3D volume MIP reconstru ctions were reviewed. FINDINGS: Short segment non-filling seen distally of the left M1 segment. There is filling of the branch vessel s distal. Otherwise, mild, patchy luminal irregularity of the intracranial arteries typical of mild a therosclerotic disease. No other areas of significant occlusion are demonstrated. No aneurysm. CONCLUSION: Nonocclusive thrombus distally of the left middle cerebral artery. River Tejada MD on August 28, 2017 at 19:55 Board Certified Radiologist. This report was verified electronically.
--- NOTE | 2017-08-28 20:03 | RADRPT ---
EXAM DATE/TIME: 08/28/2017 18:43 [facility] COMPARISON: No previous studies available for comparison. INDICATIONS : Stroke Alert- Right sided weakness. IV CONTRAST: 80 cc Omnipaque 350 (iohexol) IV RADIATION DOSE: 10.68 CTDIvol (mGy) MEDICAL HISTORY : Diabetes mellitus type 2. Hypertension. Hiatal hernia, Asthma, Cardiac. SURGICAL HISTORY : None. ENCOUNTER: Initial ACUITY: 1 day PAIN SCALE: Non-responsive LOCATION: Right cranial Elevated flow velocities and ICA/CCA ratios have been found to correlate with increased degrees of vessel stenosis, calculated as percentage of diameter relative to a normal segment of distal ICA/CCA. TECHNIQUE: Volumetric scanning was performed using a multirow detector CT scanner. The data was post processed with a variety of visualization algorithms including full-volume maximum intensity projection, multip lanar sliding thin-slab reformation, curved-planar reformation, and surface-rendering techniques. Us ing automated exposure control and adjustment of the mA and/or kV according to patient size, radiatio n dose was kept as low as reasonably achievable to obtain optimal diagnostic quality images. DICOM f ormat image data is available electronically for review and comparison. FINDINGS: AORTIC ARCH: There is a three-vessel origin of the great vessels from the aorta. No evidence of ostial narrowing. RIGHT CAROTID: Atherosclerosis and mural thrombus seen of the proximal internal carotid artery within approximately 21 mm long, 90% stenosis. There is normal opacification of the ICA distal to this area. Both the CCA and ICA are tortuous. LEFT CAROTID: The common carotid artery is intact. The carotid bulb has a normal configuration without ulceration or narrowing. The internal carotid artery lumen is smooth without stenosis. The external carotid ar kenyon is intact. VERTEBRALS: The vertebral arteries have a symmetric diameter. No stenotic lesions are seen. CONCLUSION: 1. High-grade stenosis estimated at approximately 90% involving the right internal carotid artery jus t distal to the bifurcation. This is related to calcified plaque combined with a large amount of soft plaque and/or mural/eccentric thrombus. The vessel was narrowed over approximately 21 mm in length. 2. Bilateral carotids are tortuous. No other areas of significant narrowing are demonstrated. River Tejada MD on August 28, 2017 at 19:57 Board Certified Radiologist. This report was verified electronically.
[2017-08-28] MEDS: SODIUM CHLOR 0.9% 1000 ML INJ 1,000 ML IV SCH ×2 (20:16→20:17)
[2017-08-28] MEDS: DOCUSATE SODIUM 50 MG/SENNA 8.6 MG TAB PO SCH (21:00)
[2017-08-28] MEDS: SODIUM CHLORIDE 0.9% FLUSH 10 ML FLUSH IV FLUSH SCH (21:00)
[2017-08-28] MEDS: FAMOTIDINE 20 MG/2 ML VIAL IV PUSH SCH (21:27)
[2017-08-28] MEDS ORDERED: MIDAZOLAM HCL 2 MG/2 ML VIAL ONE ×2 (22:26→23:04)
[2017-08-28] MEDS ORDERED: VERAPAMIL HCL 5 MG/2 ML VIAL ONE (22:35)
--- NOTE | 2017-08-28 23:42 | PD.RAD ---
Post Procedure Progress Note Pre Procedure Diagnosis: (1) Acute ischemic left MCA stroke Post Procedure Diagnosis: (1) Acute ischemic left MCA stroke Procedure Date: Aug 28, 2017 Supervising Radiologist: Robles Camarillo Proceduralist/Assist: Chet Pierre RT(R), Candace Sanders RT(R) Anesthesia: Conscious Sedation Plan of Activity Patient to Unit: Nursing Unit Patient Condition: Good See PACS Report for procedural detail/treatment Robles Camarillo MD Aug 28, 2017 23:42
[2017-08-28 23:54] LABS: HEMATOCRIT 42.1 % (39.0-51.0); HEMOGLOBIN 13.9 GM/DL (13.0-17.0)
[2017-08-28] MEDS ORDERED: HYDROmorphone HCL PF 2 MG/ML VIAL ONE (23:58)
[2017-08-29] VITALS (14 sets, daily range): BP systolic 105–169; BP diastolic 60–81; PULSE 64–78; RESP 10–25; TEMP 97.8–98.4; O2SAT 94–98
[2017-08-29] MEDS ORDERED: DEXTROSE 50% IN WATER 50 ML VIAL(D50) IV PUSH PRN (00:45)
[2017-08-29] MEDS ORDERED: GLUCAGON 1 MG/ML VIAL OTHER PRN (00:45)
[2017-08-29] MEDS: CHLORHEXIDINE GLUCONATE 2 % 1 PACK (2 CLOTHS) TOP SCH (04:00)
[2017-08-29] MEDS: LEVOTHYROXINE SODIUM 112 MCG TAB PO SCH (05:51)
[2017-08-29] MEDS: LEVOTHYROXINE SODIUM 25 MCG TAB PO SCH (05:52)
[2017-08-29] MEDS: SODIUM CHLOR 0.9% 1000 ML INJ 1,000 ML IV SCH ×3 (06:27→17:04)
[2017-08-29] MEDS: INSULIN NovoLIN REGULAR SUPPLEMENTAL SCALE SQ SCH ×4 (07:41→21:42)
[2017-08-29] MEDS: GABAPENTIN 300 MG CAP PO SCH ×4 (07:43→17:03)
[2017-08-29] MEDS: ASPIRIN EC 81 MG TABEC PO SCH (07:43)
[2017-08-29] MEDS: DOCUSATE SODIUM 50 MG/SENNA 8.6 MG TAB PO SCH ×2 (07:43→21:00)
[2017-08-29] MEDS: ENALAPRIL MALEATE 10 MG TAB PO SCH (07:43)
[2017-08-29] MEDS: FINASTERIDE 5 MG TAB PO SCH (07:43)
[2017-08-29] MEDS: amLODIPine BESYLATE 5 MG TAB PO SCH (07:43)
[2017-08-29] MEDS: ALLOPURINOL 100 MG TAB PO SCH (07:44)
--- NOTE | 2017-08-29 08:20 | HHI.PR ---
Review/Management Diagnosis/Plan: (1) Acute ischemic left MCA stroke ICD Codes: I63.512 - Cerebral infarction due to unspecified occlusion or stenosis of left middle cerebral artery Status: Acute Plan: acute left lacunar infarct, probably left mca left mca thrombus found rt ica stenosis recs deficit unchanged initial mri negative for acute infarct d/c hep sub, start tomorrow after 24 ct brain negative for ich. also with rt groin small hematoma from cath appreciate attempt by interventional radiology appreciate ccm therapy, light p.t. bp <180/100 f/u ct brain will need long-term rehab (2) Chronic ischemic left MCA stroke ICD Codes: I69.30 - Unspecified sequelae of cerebral infarction Status: Chronic (3) HTN (hypertension) ICD Codes: I10 - Essential (primary) hypertension Status: Chronic (4) Carotid stenosis, right ICD Codes: I65.21 - Occlusion and stenosis of right carotid artery Status: Chronic Subjective Subjective Comments No acute events reported went to interventional last night but no clot extraction 2/2 carotid dz/risk No headache No chest pain No dyspnea Active Medications Current Medications Medications (Trade) Dose Ordered Sig/Kaye Route Start Time Stop Time Status Last Admin Nicardipine HCl 25 mg/Sodium Chloride 250 ml @ 0 mls/hr TITRATE PRN IV 08/28/17 17:30 08/28/17 17:39 Miscellaneous Information No Heparin, Warfarin, Aspir... UNSCH PRN XX 08/28/17 17:30 08/29/17 17:29 Sodium Chloride 1,000 ml @ 75 mls/hr [id number] IV 08/28/17 18:15 08/29/17 07:35 (Zyloprim) 100 mg DAILY PO 08/29/17 09:00 (Norvasc) 5 mg DAILY PO 08/29/17 09:00 (Ecotrin Ec) 81 mg DAILY PO 08/29/17 09:00 (Vasotec) 20 mg DAILY PO 08/29/17 09:00 (Proscar) 5 mg DAILY PO 08/29/17 09:00 (Neurontin) 600 mg TID PO 08/29/17 09:00 (Synthroid) 112 mcg DAILY@0600 PO 08/29/17 06:00 Sodium Chloride 1,000 ml @ 84 mls/hr [id number] IV 08/28/17 18:32 08/28/17 20:16 (NS Flush) 2 ml UNSCH PRN IV FLUSH 08/28/17 18:45 (NS Flush) 2 ml BID IV FLUSH 08/28/17 21:00 08/28/17 21:00 (Tylenol) 650 mg Q6H PRN PO 08/28/17 18:45 (Pepcid Inj) 20 mg Q12HR IV PUSH 08/28/17 21:00 08/28/17 21:27 (Zofran Inj) 4 mg Q6H PRN IV PUSH 08/28/17 18:45 08/28/17 00:00 (Duoneb Neb) 1 ampule Q2HR NEB PRN INH 08/28/17 18:45 (Heparin Inj) 5,000 units Q8H SQ 08/29/17 18:45 Miscellaneous Information 1 [id number] XX 08/28/17 18:45 (Chlorhexidine 2% Cloth) 3 pack Taper DAILY@04 TOP 08/29/17 04:00 08/25/18 03:59 (Chlorhexidine 2% Cloth) 3 pack UNSCH PRN TOP 08/28/17 18:45 (Agnieszka-Colace) 1 tab BID PO 08/28/17 21:00 (Milk Of Magnesia Liq) 30 ml Q12H PRN PO 08/28/17 18:45 (Senokot) 17.2 mg Q12H PRN PO 08/28/17 18:45 (Dulcolax Supp) 10 mg DAILY PRN RECTAL 08/28/17 18:45 (Lactulose Liq) 30 ml DAILY PRN PO 08/28/17 18:45 (Synthroid) 25 mcg DAILY@0600 PO 08/29/17 06:00 (D50w (Vial) Inj) 50 ml UNSCH PRN IV PUSH 08/29/17 00:45 (Glucagon Inj) 1 mg UNSCH PRN OTHER 08/29/17 00:45 (NovoLIN R SUPPLEMENTAL SCALE) 1 ACHS SLIDING SCALE SQ 08/29/17 08:00 Allergies Allergies Coded Allergies onion (Unverified Allergy, Severe, SWELLING OF EYES AND LIPS, 08/28/17) codeine (Unverified Adverse Reaction, Severe, UNKNOWN REACTION, 08/28/17) Review of Systems All other ROS: ROS reviewed as documented in chart Exam I&O / VS Vital Signs Date Time Temp Pulse Resp B/P (MAP) Pulse Ox O2 Delivery O2 Flow Rate FiO2 08/29/17 07:00 97 Nasal Cannula 2.00 08/29/17 06:00 65 08/29/17 06:00 97.9 65 20 140/62 (88) 97 08/29/17 05:00 97.8 64 16 139/63 (88) 97 08/29/17 04:00 97.8 67 22 131/60 (83) 97 08/29/17 04:00 67 08/29/17 04:00 97 Nasal Cannula 2.00 08/29/17 03:00 97.8 71 22 137/64 (88) 97 08/29/17 02:00 72 08/29/17 02:00 97.8 72 11 141/67 (91) 96 08/29/17 01:00 97.8 74 10 157/72 (100) 96 08/29/17 00:00 97.9 66 10 160/67 (98) 96 08/29/17 00:00 66 08/28/17 22:15 08/28/17 20:19 57 20 164/79 (107) 96 Nasal Cannula 2.00 08/28/17 19:52 95 Nasal Cannula 2.00 08/28/17 19:45 67 22 178/84 (115) 98 Room Air 08/28/17 18:47 65 16 142/80 (100) 96 Nasal Cannula 2.00 08/28/17 18:35 63 18 163/76 (105) 95 Nasal Cannula 2.00 08/28/17 18:27 67 16 157/76 (103) 98 Nasal Cannula 2.00 08/28/17 18:20 63 16 161/77 (105) 96 Nasal Cannula 2.00 08/28/17 18:04 63 16 158/74 (102) 95 Nasal Cannula 2.00 08/28/17 18:00 66 18 161/74 (103) 97 Nasal Cannula 2.00 08/28/17 17:54 62 18 175/69 (104) 96 Room Air 08/28/17 17:49 61 18 185/85 (118) 95 Room Air 08/28/17 17:44 61 18 195/88 (123) 97 Room Air 08/28/17 17:39 60 188/78 1/9/18 17:33 60 16 200/93 (128) 95 Room Air 08/28/17 17:07 61 18 181/92 (121) 92 Room Air 08/28/17 16:51 96 Room Air 08/28/17 16:51 96 Room Air 08/28/17 16:45 97.9 65 18 172/82 (112) 98 General: Alert and Oriented, No acute distress Eye: EOMI Respiratory: Lungs CTA, Non-labored respirations Cardiology: Normal rate Neurologic: Alert Psychiatric: Cooperative Exam Comments ox 3, slow speech/dysfluency but articulate, able to name objects and follow. eomi, no gaze preference, face sym, vff, rt hemiplegia 0/5 strength, maria dolores le reduced pin (hx of neuropathy), dysmetria proportional to level of weakness in ue, nihss 8 Objective Micro and Labs Laboratory Tests Test 08/28/17 16:45 08/28/17 17:20 08/28/17 23:45 08/29/17 01:31 White Blood Count 8.3 Red Blood Count 4.39 Hemoglobin 13.8 13.9 Bedside Hemoglobin 13.6 Hematocrit 40.5 42.1 Bedside Hematocrit 40.0 Mean Corpuscular Volume 92.1 Mean Corpuscular Hemoglobin 31.5 Mean Corpuscular Hemoglobin Concent 34.2 Red Cell Distribution Width 13.9 Platelet Count 155 Mean Platelet Volume 8.6 Neutrophils (%) (Auto) 63.8 Lymphocytes (%) (Auto) 22.6 Monocytes (%) (Auto) 9.0 Eosinophils (%) (Auto) 3.6 Basophils (%) (Auto) 1.0 Neutrophils # (Auto) 5.3 Lymphocytes # (Auto) 1.9 Monocytes # (Auto) 0.7 Eosinophils # (Auto) 0.3 Basophils # (Auto) 0.1 CBC Comment DIFF FINAL Differential Comment Erythrocyte Sedimentation Rate 22 Prothrombin Time 10.6 Prothromb Time International Ratio 1.0 Activated Partial Thromboplast Time 24.3 Fibrinogen 293 Bedside Sodium 141 Bedside Potassium 4.2 Bedside Chloride 102 Bedside Blood Urea Nitrogen 18 Bedside Creatinine 1.0 Bedside Glucose 132 Hemoglobin A1c 7.0 Total Creatine Kinase 257 Troponin I LESS THAN 0.02 Triglycerides Level 271 Cholesterol Level 183 LDL Cholesterol 87 HDL Cholesterol 42.0 Cholesterol/HDL Ratio 4.35 Vitamin B12 Level 369 Thyroid Stimulating Hormone 3rd Gen 4.460 Urine Color LIGHT-YELLOW Urine Turbidity HAZY Urine pH 5.0 Urine Specific Waddy 1.008 Urine Protein NEG Urine Glucose (UA) NEG Urine Ketones NEG Urine Occult Blood NEG Urine Nitrite NEG Urine Bilirubin NEG Urine Urobilinogen LESS THAN 2.0 Urine Leukocyte Esterase LARGE Urine RBC 1 Urine WBC 4 Urine WBC Clumps RARE Urine Mucus FEW Microscopic Urinalysis Comment CATH-CULTURE IND Urine Opiates Screen NEG Urine Barbiturates Screen NEG Urine Amphetamines Screen NEG Urine Benzodiazepines Screen NEG Urine Cocaine Screen NEG Urine Cannabinoids Screen NEG Nasal Screen MRSA (PCR) MRSA NOT DETECTED Date/Time Source Procedure Growth Status 08/28/17 17:20 Urine Catheterized Urine Urine Culture Pending Received Problem Qualifiers (1) HTN (hypertension): Qualified Codes: I10 - Essential (primary) hypertension Quoc Harrington MD Aug 29, 2017 08:20
[2017-08-29] MEDS ORDERED: HYDROmorphone HCL PF 2 MG/ML VIAL IV PUSH PRN (08:30)
[2017-08-29] MEDS: SODIUM CHLORIDE 0.9% FLUSH 10 ML FLUSH IV FLUSH SCH ×2 (08:45→21:00)
[2017-08-29] MEDS: FAMOTIDINE 20 MG/2 ML VIAL IV PUSH SCH ×2 (08:45→21:42)
[2017-08-29] MEDS ORDERED: FINASTERIDE 5 MG TAB PO SCH (09:00)
[2017-08-29] MEDS ORDERED: NON-FORMULARY DRUG (Levothyroxine 137 MCG) PO SCH (09:00)
[2017-08-29 09:29] LABS: AUTOMATED NEUTROPHIL # 7.1 TH/MM3 (1.8-7.7); BASOPHIL # 0.1 TH/MM3 (0-0.2); BASOPHIL % 0.7 % (0.0-2.0); EOSINOPHIL # 0.1 TH/MM3 (0-0.4); EOSINOPHIL % 1.5 % (0.0-4.0); HEMATOCRIT 39.6 % (39.0-51.0); HEMOGLOBIN 13.3 GM/DL (13.0-17.0); LYMPH % 12.3 % (9.0-44.0); LYMPHOCYTE # 1.1 TH/MM3 (1.0-4.8); MEAN CELL VOLUME 92.5 FL (80.0-100.0); MEAN CORPUSCULAR HGB CONC 33.5 % (32.0-36.0); MEAN PLATELET VOLUME 8.1 FL (7.0-11.0); MONO % 7.2 % (0.0-8.0); MONOCYTE # 0.7 TH/MM3 (0-0.9); NEUT % 78.3 % (16.0-70.0); PLATELET COUNT 156 TH/MM3 (150-450); RED BLOOD COUNT 4.28 MIL/MM3 (4.50-5.90); RED CELL DISTRIBUTION WIDTH 14.3 % (11.6-17.2); WHITE BLOOD COUNT 9.1 TH/MM3 (4.0-11.0)
[2017-08-29 09:42] LABS: ALBUMIN 3.3 GM/DL (3.4-5.0); AST (GOT) 40 U/L (15-37); BICARBONATE 28.4 MEQ/L (21.0-32.0); BLOOD UREA NITROGEN 19 MG/DL (7-18); CALCIUM 8.4 MG/DL (8.5-10.1); CHLORIDE 104 MEQ/L (98-107); CREATININE 1.14 MG/DL (0.60-1.30); GLOMERULAR FILTRATION RATE 61 ML/MIN (>89); GLUCOSE,RANDOM 161 MG/DL (74-106); SODIUM (NA) 138 MEQ/L (136-145)
[2017-08-29 09:43] LABS: ALT (GPT) 60 U/L (12-78); PHOSPHORUS 3.9 MG/DL (2.5-4.9)
[2017-08-29 09:44] LABS: ALKALINE PHOSPHATASE 54 U/L (45-117); TOTAL BILIRUBIN ADULT 0.8 MG/DL (0.2-1.0); TOTAL PROTEIN 6.7 GM/DL (6.4-8.2)
[2017-08-29 09:46] LABS: TROPONIN I LESS THAN 0.02 NG/ML (0.02-0.05)
--- NOTE | 2017-08-29 10:50 | RADRPT ---
EXAM DATE/TIME: 08/28/2017 23:36 [facility] COMPARISON: No previous studies available for comparison. INDICATIONS : 81-year-old male with history of acute left hemispheric CVA and distal M1 occlusion on imaging. Time of onset is approximately 4:15 PM. Time of groin puncture is approximately 10:15 PM. MEDICAL HISTORY : HTN, Asthma, GERD, AAA, Neuropathy, Kidney stones, Diabetes SURGICAL HISTORY : Cholecystectomy ENCOUNTER: Initial ACUITY: 1 day PAIN SCORE: 0/10 FLUORO TIME: 16.3 minutes IMAGE SERIES: 1 ACCESS SITE: Right Femoral artery SEDATION TIME: 60 minutes CONTRAST: 10 cc Visipaque (iodixanol) MEDICATION(S): 1.) 2 mg midazolam (Versed) IV 2.) 1 mg hydromorphone (Dilaudid) IV 3.) 100 mcg fentanyl (Sublimaze) IV DEVICE(S): 1.) Right common femoral artery Fem-Stop Compression PROCEDURE : 1. Ultrasound-guided puncture of the access site. 2. Conscious sedation with continuous EKG and Oximetry monitoring. 3. Selective catheter placement in the left common carotid artery with selective carotid angiography The risks, benefits and alternatives to the procedure were explained and verbal and written consent w as obtained. The site was prepped in sterile fashion. Full sterile technique was used, including ca p, mask, sterile gloves and gown and a large sterile sheet. Hand hygiene and 2% chlorhexidine and/or betadine/alcohol prep was utilized per protocol for cutaneous antisepsis. Sterile gel and sterile p robe cover were utilized for ultrasound guidance. The skin and subcutaneous tissues were infiltrated with local anesthetic solution. With ultrasound and fluoroscopic guidance the selected artery was punctured and a vascular sheath was placed. Left carotid artery was then selected with a KARSON 2 catheter. However, the catheter could not be advanced beyond the origin secondary to sharp angulation of the carotid origin. Following multiple wire and catheter combinations, a Dickinson 2 catheter was advanced into the proximal carotid artery a nd angiography was performed of the carotid artery. This demonstrated patency of the common carotid a rtery with eccentric plaque at the origin of the internal carotid artery resulting in less than 50% s tenosis. Again, the catheter could not be sufficiently secured in the carotid artery to allow for mary de wire placement into the internal carotid artery. Extended trial with combination of catheters wire s and sheaths was unsuccessful. On final sheath exchanged for 7 Armenian 70 cm Rabie sheath the guidewi re looped in the pannus at the common femoral artery puncture site. Despite multiple efforts, wire co uld not be sufficiently secured for passage of new sheath and therefore an access was relinquished. H emostasis was obtained with prolonged manual compression and Fem-stop device. The puncture site was closed with manual pressure and hemostasis was obtained. The patient tolerated the procedure well and there were no complications. Conscious sedation was performed with the prescribed dosages and duration as above in the presence of an independent trained radiology nurse to assist in the monitoring of the patient. EKG and oximetry remained stable throughout the procedure. CONCLUSION: 1. Extremely challenging arch anatomy with marked angulation of the carotid origin. Prolonged cannula tion attempt utilizing multiple wires and catheters was unsuccessful in advancing catheter beyond the proximal left common carotid. Procedure was terminated following extended cannulation attempt and lo ss of femoral access from multiple sheath exchanges, as above. Robles Camarillo MD on August 29, 2017 at 10:29 Board Certified Radiologist. This report was verified electronically.
[2017-08-29] MEDS ORDERED: NITROGLYCERIN 0.4 MG SL 25 TABS/BTL SL ONE (11:04)
[2017-08-29] MEDS ORDERED: NITROGLYCERIN 0.4 MG SL 25 TABS/BTL SL STA (12:11)
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
[2017-08-29] MEDS: ONDANSETRON HCL 4 MG/2 ML VIAL IV PUSH PRN (14:45)
--- NOTE | 2017-08-29 15:20 | RADRPT ---
EXAM DATE/TIME: 08/29/2017 12:04 [facility] COMPARISON: MRI BRAIN W/O CONTRAST, August 28, 2017, 19:18. INDICATIONS : Stroke. Aphasia. Right sided weakness. MEDICAL HISTORY : Hypertension. Diabetes mellitus type 2. SURGICAL HISTORY : Appendectomy. Tonsillectomy. Cholecystectomy. ENCOUNTER: Subsequent ACUITY: 2 day PAIN SCORE: 0/10 LOCATION: head. TECHNIQUE: Multiplanar, multisequence MRI of the brain was performed without contrast. FINDINGS: CEREBRUM: Numerous ischemic changes periventricular white matter probably anterior cerebral artery territory le ft hemisphere. No associated hemorrhage. WHITE MATTER: Marked periventricular white matter changes stable in the interval. POSTERIOR FOSSA: The cerebellum and brainstem are intact. The 4th ventricle is midline. The cerebellopontine angle is unremarkable. The cerebellar tonsils are normal in position. : EXTRACRANIAL: The moderate bilateral maxillary chronic sinus disease. CONCLUSION: Small area restricted diffusion high white matter probably anterior cerebral artery territories left hemisphere without hemorrhage. Marked periventricular white matter changes. Jarred Delacruz MD FACR on August 29, 2017 at 15:12 Board Certified Radiologist. This report was verified electronically.
[2017-08-29 17:02] LABS: TROPONIN I LESS THAN 0.02 NG/ML (0.02-0.05)
[2017-08-29] MEDS ORDERED: HEPARIN SODIUM - SQ 10,000 UNITS/ML VIAL SQ SCH (18:45)
--- NOTE | 2017-08-29 18:54 | RADRPT ---
EXAM DATE/TIME: 08/29/2017 18:23 [facility] COMPARISON: CT BRAIN W/O CONTRAST, August 28, 2017, 16:54. INDICATIONS : Post stroke alert, TPA 24 hours. RADIATION DOSE: 41.05 CTDIvol (mGy) MEDICAL HISTORY : Cardiovascular disease. Hypertension. Clot left mail seen 08/28/17 SURGICAL HISTORY : Specials unsucessfully 08/28/17 ENCOUNTER: Initial ACUITY: 1 day PAIN SCALE: 4/10 LOCATION: cranial TECHNIQUE: Multiple contiguous axial images were obtained of the head. Using automated exposure control and adj ustment of the mA and/or kV according to patient size, radiation dose was kept as low as reasonably a chievable to obtain optimal diagnostic quality images. DICOM format image data is available electro nically for review and comparison. FINDINGS: There is marked central and cortical atrophy with dilatation of ventricular and sulcal spaces. There is no parenchymal hemorrhage, acute infarction or mass lesion identified. There are no extra-axial fluid collections appreciated. The posterior fossa is unremarkable with midline fourth ventricle. T he portion of the orbits and paranasal sinuses visualized are unremarkable except for right maxillary sinus disease. CONCLUSION: No acute disease. Luis A Bo MD on August 29, 2017 at 18:51 Board Certified Radiologist. This report was verified electronically.
--- NOTE | 2017-08-29 19:46 | ECHRPT ---
Indication: CVA / TIA CONCLUSIONS The left ventricular systolic function is normal with an estimated ejection fraction in the range of 60-65%. Wall thickness is measured at the upper limits of normal. Normal left ventricular size. BP: 140 / 62 HR: 65 Rhythm: Sinus MEASUREMENTS (Male / Female) Normal Values Technical Quality:Fair 2D ECHO LV Diastolic Diameter PLAX 5.8 cm 4.2 - 5.9 / 3.9 - 5.3 cm LV Systolic Diameter PLAX 4.3 cm IVS Diastolic Thickness 1.4 cm 0.6 - 1.0 / 0.6 - 0.9 cm LVPW Diastolic Thickness 1.4 cm 0.6 - 1.0 / 0.6 - 0.9 cm LV Relative Wall Thickness 0.5 LVOT Diameter 2.0 cm LA Systolic Diameter LX 2.9 cm 3.0 - 4.0 / 2.7 - 3.8 cm M-MODE Aortic Root Diameter MM 3.0 cm AV Cusp Separation MM 2.5 cm DOPPLER AV Peak Velocity 129.0 cm/s AV Peak Gradient 6.7 mmHg LVOT Peak Velocity 115.0 cm/s LVOT Peak Gradient 5.3 mmHg AV Area Cont Eq pk 2.8 cm Mitral E Point Velocity 113.0 cm/s Mitral A Point Velocity 145.0 cm/s Mitral E to A Ratio 0.8 LV E' Lateral Velocity 6.2 cm/s Mitral E to LV E' Lateral Ratio 18.1 LV E' Septal Velocity 6.9 cm/s Mitral E to LV E' Septal Ratio 16.3 PV Peak Velocity 140.0 cm/s PV Peak Gradient 7.8 mmHg FINDINGS LEFT VENTRICLE The left ventricular systolic function is normal with an estimated ejection fraction in the range of 60-65%. Wall thickness is measured at the upper limits of normal. Normal left ventricular size. RIGHT VENTRICLE Normal right ventricular size and systolic function. LEFT ATRIUM The left atrial size is normal. RIGHT ATRIUM The right atrial size is normal. ATRIAL SEPTUM Normal atrial septal thickness without atrial level shunting by limited color doppler interrogation. AORTA The aortic root and proximal ascending aorta are normal in size on limited imaging. MITRAL VALVE Structurally normal mitral valve. No mitral valve stenosis or regurgitation. AORTIC VALVE Trileaflet aortic valve. No aortic valve stenosis or regurgitation. TRICUSPID VALVE Structurally normal tricuspid valve. No tricuspid valve stenosis or regurgitation. PULMONARY VALVE The pulmonary valve is not well visualized. VESSELS The inferior vena cava is normal in size. PERICARDIUM No pericardial effusion. Shashi Mccullough MD, FACC (Electronically Signed) Final Date:29 August 2017 19:45
--- NOTE | 2017-08-29 20:59 | EKG ---
Date Performed: 08/29/2017 Time Performed: 08:59:08 PTAGE: 81 years EKG: Sinus rhythm with borderline 1st degree A-V block Possible left anterior fascicular block Possible anteroseptal i nfarct - age undetermined Lateral ST-T changes are nonspecific Abnormal ECG PREVIOUS TRACING : 08/28/2017 17.11 Compared to prior tracing no significant change DOCTOR: Shashi Mccullough Interpretating Date/Time 08/29/2017 20:59:24
--- NOTE | 2017-08-29 22:01 | EKG ---
Date Performed: 08/28/2017 Time Performed: 17:11:35 PTAGE: 81 years EKG: Sinus rhythm WITH FIRST DEGREE AV BLOCK MARKED LEFT AXIS DEVIATION NONSPECIFIC T-WAVE ABNORMALITY ABNORMAL R WAVE PROGRESSION ABNORMAL ECG PREVIOUS TRACING : 10/07/2016 15.57 Compared to prior tracing no significant change DOCTOR: Shashi Mccullough Interpretating Date/Time 08/29/2017 21:59:20
[2017-08-30] VITALS (11 sets, daily range): BP systolic 129–194; BP diastolic 64–84; PULSE 60–110; RESP 14–23; TEMP 97.6–98.6; O2SAT 94–97
[2017-08-30 01:12] LABS: HEMATOCRIT 42.2 % (39.0-51.0); HEMOGLOBIN 14.1 GM/DL (13.0-17.0)
[2017-08-30] MEDS: CHLORHEXIDINE GLUCONATE 2 % 1 PACK (2 CLOTHS) TOP SCH (04:00)
[2017-08-30] MEDS: LEVOTHYROXINE SODIUM 112 MCG TAB PO SCH (05:57)
[2017-08-30] MEDS: LEVOTHYROXINE SODIUM 25 MCG TAB PO SCH (05:58)
[2017-08-30] MEDS: SODIUM CHLOR 0.9% 1000 ML INJ 1,000 ML IV SCH ×4 (06:17→23:35)
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
[2017-08-30] MEDS: INSULIN NovoLIN REGULAR SUPPLEMENTAL SCALE SQ SCH ×4 (08:00→21:07)
--- NOTE | 2017-08-30 08:41 | HHI.PR ---
Review/Management Diagnosis/Plan: (1) Acute ischemic left MCA stroke ICD Codes: I63.512 - Cerebral infarction due to unspecified occlusion or stenosis of left middle cerebral artery Status: Acute Plan: acute left lacunar infarct, probably left mca left mca thrombus found rt ica stenosis 08/29 ct brain- no ich mri brain- moderate left jluis territory infarct recs deficit worse ok for 5th floor with tele p.t./s.t. can start hep sub dvt dose start aspirin once tolerating po will need long-term rehab (2) Chronic ischemic left MCA stroke ICD Codes: I69.30 - Unspecified sequelae of cerebral infarction Status: Chronic (3) HTN (hypertension) ICD Codes: I10 - Essential (primary) hypertension Status: Chronic (4) Carotid stenosis, right ICD Codes: I65.21 - Occlusion and stenosis of right carotid artery Status: Chronic Subjective Subjective Comments No acute events reported Active Medications Current Medications Medications (Trade) Dose Ordered Sig/Kaye Route Start Time Stop Time Status Last Admin Nicardipine HCl 25 mg/Sodium Chloride 250 ml @ 0 mls/hr TITRATE PRN IV 08/28/17 17:30 08/28/17 17:39 Sodium Chloride 1,000 ml @ 75 mls/hr [id number] IV 08/28/17 18:15 08/29/17 07:35 (Zyloprim) 100 mg DAILY PO 08/29/17 09:00 (Norvasc) 5 mg DAILY PO 08/29/17 09:00 (Ecotrin Ec) 81 mg DAILY PO 08/29/17 09:00 (Vasotec) 20 mg DAILY PO 08/29/17 09:00 (Proscar) 5 mg DAILY PO 08/29/17 09:00 (Neurontin) 600 mg TID PO 08/29/17 09:00 (Synthroid) 112 mcg DAILY@0600 PO 08/29/17 06:00 08/30/17 05:57 Sodium Chloride 1,000 ml @ 84 mls/hr [id number] IV 08/28/17 18:32 08/28/17 20:16 (NS Flush) 2 ml UNSCH PRN IV FLUSH 08/28/17 18:45 (NS Flush) 2 ml BID IV FLUSH 08/28/17 21:00 08/29/17 21:00 (Tylenol) 650 mg Q6H PRN PO 08/28/17 18:45 (Pepcid Inj) 20 mg Q12HR IV PUSH 08/28/17 21:00 08/29/17 21:42 (Zofran Inj) 4 mg Q6H PRN IV PUSH 08/28/17 18:45 08/29/17 14:45 (Duoneb Neb) 1 ampule Q2HR NEB PRN INH 08/28/17 18:45 Miscellaneous Information 1 [id number] 08/28/17 18:45 (Chlorhexidine 2% Cloth) 3 pack Taper DAILY@04 TOP 08/29/17 04:00 08/25/18 03:59 (Chlorhexidine 2% Cloth) 3 pack UNSCH PRN TOP 08/28/17 18:45 (Agnieszka-Colace) 1 tab BID PO 08/28/17 21:00 (Milk Of Magnesia Liq) 30 ml Q12H PRN PO 08/28/17 18:45 (Senokot) 17.2 mg Q12H PRN PO 08/28/17 18:45 (Dulcolax Supp) 10 mg DAILY PRN RECTAL 08/28/17 18:45 (Lactulose Liq) 30 ml DAILY PRN PO 08/28/17 18:45 (Synthroid) 25 mcg DAILY@0600 PO 08/29/17 06:00 08/30/17 05:58 (D50w (Vial) Inj) 50 ml UNSCH PRN IV PUSH 08/29/17 00:45 (Glucagon Inj) 1 mg UNSCH PRN OTHER 08/29/17 00:45 (NovoLIN R SUPPLEMENTAL SCALE) 1 ACHS SLIDING SCALE SQ 08/29/17 08:00 08/29/17 21:42 Allergies Allergies Coded Allergies onion (Unverified Allergy, Severe, SWELLING OF EYES AND LIPS, 08/28/17) codeine (Unverified Adverse Reaction, Severe, UNKNOWN REACTION, 08/28/17) Review of Systems All other ROS: ROS reviewed as documented in chart Exam I&O / VS Vital Signs Date Time Temp Pulse Resp B/P (MAP) Pulse Ox O2 Delivery O2 Flow Rate FiO2 08/30/17 08:28 97 Nasal Cannula 3.00 08/30/17 07:00 97 Nasal Cannula 3.00 08/30/17 06:00 62 08/30/17 04:00 60 08/30/17 04:00 97.6 60 14 129/64 (85) 95 08/30/17 02:00 76 08/30/17 00:00 97.8 72 23 165/75 (105) 97 08/30/17 00:00 110 08/29/17 22:00 76 08/29/17 20:00 97.8 72 23 165/75 (105) 97 08/29/17 20:00 72 08/29/17 19:30 98 Nasal Cannula 2.00 08/29/17 19:30 96 Nasal Cannula 2.00 08/29/17 19:00 96 Nasal Cannula 2.00 08/29/17 16:00 98.0 78 18 169/81 (110) 94 08/29/17 12:00 98.4 66 25 105/74 (84) 96 08/29/17 09:21 96 Nasal Cannula 2.00 General: Alert and Oriented, No acute distress Eye: EOMI Respiratory: Lungs CTA, Non-labored respirations Cardiology: Normal rate Neurologic: Alert Psychiatric: Cooperative Exam Comments alerts, mixed aphasia, not following, eomi, no gaze preference, reduced rt nlf , vff, rt hemiplegia 0/5 strength, maria dolores le reduced pin, dysmetria proportional to level of weakness in ue, nihss 12 Objective Micro and Labs Laboratory Tests Test 08/29/17 09:00 08/29/17 16:00 08/30/17 00:46 White Blood Count 9.1 Red Blood Count 4.28 Hemoglobin 13.3 14.1 Hematocrit 39.6 42.2 Mean Corpuscular Volume 92.5 Mean Corpuscular Hemoglobin 31.0 Mean Corpuscular Hemoglobin Concent 33.5 Red Cell Distribution Width 14.3 Platelet Count 156 Mean Platelet Volume 8.1 Neutrophils (%) (Auto) 78.3 Lymphocytes (%) (Auto) 12.3 Monocytes (%) (Auto) 7.2 Eosinophils (%) (Auto) 1.5 Basophils (%) (Auto) 0.7 Neutrophils # (Auto) 7.1 Lymphocytes # (Auto) 1.1 Monocytes # (Auto) 0.7 Eosinophils # (Auto) 0.1 Basophils # (Auto) 0.1 CBC Comment DIFF FINAL Differential Comment Blood Urea Nitrogen 19 Creatinine 1.14 Random Glucose 161 Total Protein 6.7 Albumin 3.3 Calcium Level 8.4 Phosphorus Level 3.9 Magnesium Level 2.0 Alkaline Phosphatase 54 Aspartate Amino Transf (AST/SGOT) 40 Alanine Aminotransferase (ALT/SGPT) 60 Total Bilirubin 0.8 Sodium Level 138 Potassium Level 4.2 Chloride Level 104 Carbon Dioxide Level 28.4 Anion Gap 6 Estimat Glomerular Filtration Rate 61 Total Creatine Kinase 121 101 Troponin I LESS THAN 0.02 LESS THAN 0.02 Date/Time Source Procedure Growth Status 08/28/17 17:20 Urine Catheterized Urine Urine Culture - Preliminary Staph Sp Coagulase Negative Resulted Problem Qualifiers (1) HTN (hypertension): Qualified Codes: I10 - Essential (primary) hypertension Quoc Harrington MD Aug 30, 2017 08:41
[2017-08-30] MEDS: FINASTERIDE 5 MG TAB PO SCH (09:03)
[2017-08-30] MEDS: ASPIRIN EC 81 MG TABEC PO SCH (09:03)
[2017-08-30] MEDS: amLODIPine BESYLATE 5 MG TAB PO SCH (09:03)
[2017-08-30] MEDS: GABAPENTIN 300 MG CAP PO SCH ×3 (09:03→17:06)
[2017-08-30] MEDS: HEPARIN SODIUM - SQ 10,000 UNITS/ML VIAL SQ SCH ×2 (09:03→21:07)
[2017-08-30] MEDS: ENALAPRIL MALEATE 10 MG TAB PO SCH (09:03)
[2017-08-30] MEDS: FAMOTIDINE 20 MG/2 ML VIAL IV PUSH SCH ×2 (09:03→21:07)
[2017-08-30] MEDS: SODIUM CHLORIDE 0.9% FLUSH 10 ML FLUSH IV FLUSH SCH ×2 (09:03→21:07)
[2017-08-30] MEDS: DOCUSATE SODIUM 50 MG/SENNA 8.6 MG TAB PO SCH ×2 (09:03→21:00)
[2017-08-30] MEDS: ALLOPURINOL 100 MG TAB PO SCH (09:03)
[2017-08-31] VITALS (9 sets, daily range): BP systolic 123–158; BP diastolic 58–76; PULSE 58–71; RESP 16–25; TEMP 97.9–98.4; O2SAT 95–98
[2017-08-31] MEDS: CHLORHEXIDINE GLUCONATE 2 % 1 PACK (2 CLOTHS) TOP SCH (03:50)
[2017-08-31] MEDS: SODIUM CHLOR 0.9% 1000 ML INJ 1,000 ML IV SCH ×2 (06:07→12:55)
[2017-08-31] MEDS: LEVOTHYROXINE SODIUM 25 MCG TAB PO SCH (06:22)
[2017-08-31] MEDS: LEVOTHYROXINE SODIUM 112 MCG TAB PO SCH (06:22)
[2017-08-31] MEDS: INSULIN NovoLIN REGULAR SUPPLEMENTAL SCALE SQ SCH ×4 (08:07→21:00)
[2017-08-31] MEDS: FAMOTIDINE 20 MG/2 ML VIAL IV PUSH SCH ×2 (08:18→20:43)
[2017-08-31] MEDS: HEPARIN SODIUM - SQ 10,000 UNITS/ML VIAL SQ SCH ×2 (08:18→20:43)
[2017-08-31] MEDS: ENALAPRIL MALEATE 10 MG TAB PO SCH (08:19)
[2017-08-31] MEDS: amLODIPine BESYLATE 5 MG TAB PO SCH (08:19)
[2017-08-31] MEDS: ALLOPURINOL 100 MG TAB PO SCH (08:19)
[2017-08-31] MEDS: FINASTERIDE 5 MG TAB PO SCH (08:19)
[2017-08-31] MEDS: DOCUSATE SODIUM 50 MG/SENNA 8.6 MG TAB PO SCH ×2 (08:19→20:43)
[2017-08-31] MEDS: GABAPENTIN 300 MG CAP PO SCH ×3 (08:19→17:24)
[2017-08-31] MEDS: ASPIRIN EC 81 MG TABEC PO SCH (08:19)
--- NOTE | 2017-08-31 08:59 | HHI.PR ---
Review/Management Diagnosis/Plan: (1) Acute ischemic left MCA stroke ICD Codes: I63.512 - Cerebral infarction due to unspecified occlusion or stenosis of left middle cerebral artery Status: Acute Plan: acute left lacunar infarct, left jluis/mca region left mca thrombus found echo 60-65%, left atrium nml size rt ica stenosis 08/29 ct brain- no ich mri brain- moderate left jluis territory infarct recs neuro stable ok for 5th floor with tele/[facility] p.t./s.t., full therapy d/w rn (2) Chronic ischemic left MCA stroke ICD Codes: I69.30 - Unspecified sequelae of cerebral infarction Status: Chronic (3) HTN (hypertension) ICD Codes: I10 - Essential (primary) hypertension Status: Chronic (4) Carotid stenosis, right ICD Codes: I65.21 - Occlusion and stenosis of right carotid artery Status: Chronic Subjective Subjective Comments No acute events reported No headache No chest pain No dyspnea Active Medications Current Medications Medications (Trade) Dose Ordered Sig/Kaye Route Start Time Stop Time Status Last Admin Nicardipine HCl 25 mg/Sodium Chloride 250 ml @ 0 mls/hr TITRATE PRN IV 08/28/17 17:30 08/28/17 17:39 Sodium Chloride 1,000 ml @ 75 mls/hr [id number] IV 08/28/17 18:15 08/29/17 07:35 (Zyloprim) 100 mg DAILY PO 08/29/17 09:00 08/31/17 08:19 (Norvasc) 5 mg DAILY PO 08/29/17 09:00 08/31/17 08:19 (Ecotrin Ec) 81 mg DAILY PO 08/29/17 09:00 08/31/17 08:19 (Vasotec) 20 mg DAILY PO 08/29/17 09:00 08/31/17 08:19 (Proscar) 5 mg DAILY PO 08/29/17 09:00 08/31/17 08:19 (Neurontin) 600 mg TID PO 08/29/17 09:00 08/31/17 08:19 (Synthroid) 112 mcg DAILY@0600 PO 08/29/17 06:00 08/31/17 06:22 Sodium Chloride 1,000 ml @ 84 mls/hr [id number] IV 08/28/17 18:32 08/28/17 20:16 (NS Flush) 2 ml UNSCH PRN IV FLUSH 08/28/17 18:45 (NS Flush) 2 ml BID IV FLUSH 08/28/17 21:00 08/30/17 21:07 (Tylenol) 650 mg Q6H PRN PO 08/28/17 18:45 (Pepcid Inj) 20 mg Q12HR IV PUSH 08/28/17 21:00 08/31/17 08:18 (Zofran Inj) 4 mg Q6H PRN IV PUSH 08/28/17 18:45 08/29/17 14:45 (Duoneb Neb) 1 ampule Q2HR NEB PRN INH 08/28/17 18:45 Miscellaneous Information 1 [id number] XX 08/28/17 18:45 (Chlorhexidine 2% Cloth) 3 pack Taper DAILY@04 TOP 08/29/17 04:00 08/25/18 03:59 (Chlorhexidine 2% Cloth) 3 pack UNSCH PRN TOP 08/28/17 18:45 (Agnieszka-Colace) 1 tab BID PO 08/28/17 21:00 08/31/17 08:19 (Milk Of Magnesia Liq) 30 ml Q12H PRN PO 08/28/17 18:45 (Senokot) 17.2 mg Q12H PRN PO 08/28/17 18:45 (Dulcolax Supp) 10 mg DAILY PRN RECTAL 08/28/17 18:45 (Lactulose Liq) 30 ml DAILY PRN PO 08/28/17 18:45 (Synthroid) 25 mcg DAILY@0600 PO 08/29/17 06:00 08/31/17 06:22 (D50w (Vial) Inj) 50 ml UNSCH PRN IV PUSH 08/29/17 00:45 (Glucagon Inj) 1 mg UNSCH PRN OTHER 08/29/17 00:45 (NovoLIN R SUPPLEMENTAL SCALE) 1 ACHS SLIDING SCALE SQ 08/29/17 08:00 08/31/17 08:07 (Heparin Inj) 5,000 units BID SQ 08/30/17 09:00 08/31/17 08:18 Allergies Allergies Coded Allergies onion (Unverified Allergy, Severe, SWELLING OF EYES AND LIPS, 08/28/17) codeine (Unverified Adverse Reaction, Severe, UNKNOWN REACTION, 08/28/17) Review of Systems All other ROS: ROS reviewed as documented in chart Exam I&O / VS Vital Signs Date Time Temp Pulse Resp B/P (MAP) Pulse Ox O2 Delivery O2 Flow Rate FiO2 08/31/17 04:00 98.3 58 16 158/65 (96) 98 08/31/17 04:00 58 08/31/17 00:00 71 08/31/17 00:00 98.4 71 17 154/76 (102) 96 08/30/17 21:56 94 Nasal Cannula 3.00 08/30/17 20:00 73 08/30/17 20:00 98.6 73 18 146/68 (94) 94 08/30/17 19:00 94 Nasal Cannula 3.00 08/30/17 16:00 97.8 66 14 153/67 (95) 97 08/30/17 16:00 66 08/30/17 12:00 97.8 72 15 165/74 (104) 94 08/30/17 12:00 72 08/30/17 09:00 166/74 (104) General: No acute distress Eye: EOMI Respiratory: Lungs CTA, Non-labored respirations Cardiology: Normal rate Neurologic: Alert Psychiatric: Cooperative Exam Comments alerts, follows some motor requests showed 2 fingers with left hand, closes eyes , eomi, no gaze preference, reduced rt nlf, vff, rt hemiplegia 0/5 strength, maria dolores le reduced pin, dysmetria proportional to level of weakness in ue, nihss 11 Objective Micro and Labs Date/Time Source Procedure Growth Status 08/28/17 17:20 Urine Catheterized Urine Urine Culture - Final Staphylococcus Epidermidis Complete Problem Qualifiers (1) HTN (hypertension): Qualified Codes: I10 - Essential (primary) hypertension Quoc Harrington MD Aug 31, 2017 08:59
[2017-08-31] MEDS: SODIUM CHLORIDE 0.9% FLUSH 10 ML FLUSH IV FLUSH SCH ×2 (09:00→20:43)
[2017-08-31] MEDS: ASPIRIN EC 325 MG TABEC PO SCH (10:57)
[2017-08-31] MEDS: ACETAMINOPHEN 325 MG TAB PO PRN (10:57)
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
[2017-08-31] MEDS: ACETAMINOPHEN/HYDROcodone 325 MG/5 MG TAB PO PRN (14:23)
[2017-09-01] VITALS (8 sets, daily range): BP systolic 103–162; BP diastolic 57–74; PULSE 62–74; RESP 15–20; TEMP 97.6–98.7; O2SAT 92–98
[2017-09-01] MEDS: CHLORHEXIDINE GLUCONATE 2 % 1 PACK (2 CLOTHS) TOP SCH (04:00)
[2017-09-01] MEDS: LEVOTHYROXINE SODIUM 112 MCG TAB PO SCH (05:11)
[2017-09-01] MEDS: LEVOTHYROXINE SODIUM 25 MCG TAB PO SCH (05:11)
[2017-09-01] MEDS: INSULIN NovoLIN REGULAR SUPPLEMENTAL SCALE SQ SCH ×4 (08:00→21:43)
[2017-09-01] MEDS: HEPARIN SODIUM - SQ 10,000 UNITS/ML VIAL SQ SCH ×2 (08:09→21:24)
[2017-09-01] MEDS: SODIUM CHLORIDE 0.9% FLUSH 10 ML FLUSH IV FLUSH SCH ×2 (08:09→21:23)
[2017-09-01] MEDS: FAMOTIDINE 20 MG/2 ML VIAL IV PUSH SCH ×2 (08:09→21:24)
[2017-09-01] MEDS: DOCUSATE SODIUM 50 MG/SENNA 8.6 MG TAB PO SCH ×2 (08:10→21:24)
[2017-09-01] MEDS: ENALAPRIL MALEATE 10 MG TAB PO SCH (08:10)
[2017-09-01] MEDS: GABAPENTIN 300 MG CAP PO SCH ×3 (08:10→17:33)
[2017-09-01] MEDS: FINASTERIDE 5 MG TAB PO SCH (08:10)
[2017-09-01] MEDS: amLODIPine BESYLATE 5 MG TAB PO SCH (08:10)
[2017-09-01] MEDS: ALLOPURINOL 100 MG TAB PO SCH (08:10)
[2017-09-01] MEDS: ASPIRIN EC 325 MG TABEC PO SCH (08:10)
[2017-09-01] MEDS: ACETAMINOPHEN/HYDROcodone 325 MG/5 MG TAB PO PRN ×2 (09:35→17:34)
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
[2017-09-01] MEDS ORDERED: diphenhydrAMINE HCL 25 MG CAP PO PRN (16:15)
[2017-09-01] MEDS: HYDROCORTISONE 1% CREAM 30 GM TOPICAL SCH (17:33)
[2017-09-02] VITALS (9 sets, daily range): BP systolic 101–180; BP diastolic 55–93; PULSE 64–78; RESP 14–20; TEMP 97.7–98.6; O2SAT 94–98
[2017-09-02] MEDS: CHLORHEXIDINE GLUCONATE 2 % 1 PACK (2 CLOTHS) TOP SCH (03:07)
[2017-09-02] MEDS: LEVOTHYROXINE SODIUM 25 MCG TAB PO SCH (05:30)
[2017-09-02] MEDS: LEVOTHYROXINE SODIUM 112 MCG TAB PO SCH (05:30)
[2017-09-02] MEDS: HYDROCORTISONE 1% CREAM 30 GM TOPICAL SCH ×2 (05:31→17:32)
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
[2017-09-02] MEDS: INSULIN NovoLIN REGULAR SUPPLEMENTAL SCALE SQ SCH ×4 (08:00→20:55)
[2017-09-02] MEDS: DOCUSATE SODIUM 50 MG/SENNA 8.6 MG TAB PO SCH ×2 (09:39→20:24)
[2017-09-02] MEDS: ASPIRIN EC 325 MG TABEC PO SCH (09:39)
[2017-09-02] MEDS: SODIUM CHLORIDE 0.9% FLUSH 10 ML FLUSH IV FLUSH SCH ×2 (09:39→20:24)
[2017-09-02] MEDS: ENALAPRIL MALEATE 10 MG TAB PO SCH (09:39)
[2017-09-02] MEDS: ACETAMINOPHEN 325 MG TAB PO PRN (09:39)
[2017-09-02] MEDS: ALLOPURINOL 100 MG TAB PO SCH (09:39)
[2017-09-02] MEDS: GABAPENTIN 300 MG CAP PO SCH ×3 (09:40→17:32)
[2017-09-02] MEDS: HEPARIN SODIUM - SQ 10,000 UNITS/ML VIAL SQ SCH ×2 (09:40→20:25)
[2017-09-02] MEDS: FAMOTIDINE 20 MG/2 ML VIAL IV PUSH SCH ×2 (09:40→20:24)
[2017-09-02] MEDS: amLODIPine BESYLATE 5 MG TAB PO SCH (09:40)
[2017-09-02] MEDS: FINASTERIDE 5 MG TAB PO SCH (09:40)
[2017-09-02] MEDS: ACETAMINOPHEN/HYDROcodone 325 MG/5 MG TAB PO PRN (10:46)
--- NOTE | 2017-09-02 12:14 | HHI.PR ---
Review/Management Diagnosis/Plan: (1) Acute ischemic left MCA stroke ICD Codes: I63.512 - Cerebral infarction due to unspecified occlusion or stenosis of left middle cerebral artery Status: Acute Plan: Acute left lacunar infarct, Left NIKITA/MCA region Left MCA thrombus Cardiac ECHO with 60-65%,, left atrium is normal in size Right ICA stenosis Assessment and recommendations Stable from neurology stand point Can be managed on a progressive floor Needs [facility] Dr. Harrington will follow up on Sunday (2) Chronic ischemic left MCA stroke ICD Codes: I69.30 - Unspecified sequelae of cerebral infarction Status: Chronic (3) HTN (hypertension) ICD Codes: I10 - Essential (primary) hypertension Status: Chronic (4) Carotid stenosis, right ICD Codes: I65.21 - Occlusion and stenosis of right carotid artery Status: Chronic Subjective Subjective Comments Covering for Dr. Harrington for the weekend No acute events reported MRI with radiologic evidence of left NIKITA stroke Active Medications Current Medications Medications (Trade) Dose Ordered Sig/Kaye Route Start Time Stop Time Status Last Admin Nicardipine HCl 25 mg/Sodium Chloride 250 ml @ 0 mls/hr TITRATE PRN IV 08/28/17 17:30 08/28/17 17:39 (Zyloprim) 100 mg DAILY PO 08/29/17 09:00 09/02/17 09:39 (Norvasc) 5 mg DAILY PO 08/29/17 09:00 09/02/17 09:40 (Vasotec) 20 mg DAILY PO 08/29/17 09:00 09/02/17 09:39 (Proscar) 5 mg DAILY PO 08/29/17 09:00 09/02/17 09:40 (Neurontin) 600 mg TID PO 08/29/17 09:00 09/02/17 09:40 (Synthroid) 112 mcg DAILY@0600 PO 08/29/17 06:00 09/02/17 05:30 (NS Flush) 2 ml UNSCH PRN IV FLUSH 08/28/17 18:45 (NS Flush) 2 ml BID IV FLUSH 08/28/17 21:00 09/02/17 09:39 (Tylenol) 650 mg Q6H PRN PO 08/28/17 18:45 09/02/17 09:39 (Pepcid Inj) 20 mg Q12HR IV PUSH 08/28/17 21:00 09/02/17 09:40 (Zofran Inj) 4 mg Q6H PRN IV PUSH 08/28/17 18:45 08/29/17 14:45 (Duoneb Neb) 1 ampule Q2HR NEB PRN INH 08/28/17 18:45 Miscellaneous Information 1 Q361D XX 08/28/17 18:45 (Chlorhexidine 2% Cloth) 3 pack Taper DAILY@04 TOP 08/29/17 04:00 08/25/18 03:59 (Chlorhexidine 2% Cloth) 3 pack UNSCH PRN TOP 08/28/17 18:45 (Agnieszka-Colace) 1 tab BID PO 08/28/17 21:00 09/02/17 09:39 (Milk Of Magnesia Liq) 30 ml Q12H PRN PO 08/28/17 18:45 (Senokot) 17.2 mg Q12H PRN PO 08/28/17 18:45 (Dulcolax Supp) 10 mg DAILY PRN RECTAL 08/28/17 18:45 (Lactulose Liq) 30 ml DAILY PRN PO 08/28/17 18:45 (Synthroid) 25 mcg DAILY@0600 PO 08/29/17 06:00 09/02/17 05:30 (D50w (Vial) Inj) 50 ml UNSCH PRN IV PUSH 08/29/17 00:45 (Glucagon Inj) 1 mg UNSCH PRN OTHER 08/29/17 00:45 (NovoLIN R SUPPLEMENTAL SCALE) 1 ACHS SLIDING SCALE SQ 08/29/17 08:00 09/02/17 08:00 (Heparin Inj) 5,000 units BID SQ 08/30/17 09:00 09/02/17 09:40 (Ecotrin Ec) 325 mg DAILY PO 08/31/17 09:00 09/02/17 09:39 ([place] 5-325 Mg) 1 tab Q4H PRN PO 08/31/17 13:45 09/02/17 10:46 (Hydrocortisone 1% Cream) 1 applic Q12H TOPICAL 09/01/17 18:00 09/02/17 05:31 Allergies Allergies Coded Allergies onion (Unverified Allergy, Severe, SWELLING OF EYES AND LIPS, 08/28/17) codeine (Unverified Adverse Reaction, Severe, UNKNOWN REACTION, 08/28/17) Review of Systems All other ROS: ROS reviewed as documented in chart Exam I&O / VS Vital Signs Date Time Temp Pulse Resp B/P (MAP) Pulse Ox O2 Delivery O2 Flow Rate FiO2 09/02/17 08:53 159/76 (103) 09/02/17 08:00 98.3 72 16 177/93 (121) 95 09/02/17 08:00 74 09/02/17 07:48 98 21 09/02/17 07:15 94 21 09/02/17 07:00 94 Room Air 09/02/17 04:00 98.5 70 16 144/70 (94) 94 09/02/17 04:00 70 09/02/17 00:00 98.4 70 16 144/69 (94) 95 09/02/17 00:00 70 09/01/17 21:39 96 Nasal Cannula 09/01/17 20:00 98.0 70 15 134/64 (87) 92 09/01/17 20:00 70 09/01/17 19:00 95 Room Air 09/01/17 16:00 98.0 74 18 135/66 (89) 97 09/01/17 16:00 74 General: No acute distress Eye: EOMI Respiratory: Lungs CTA, Non-labored respirations Cardiology: Normal rate Neurologic: Alert Psychiatric: Cooperative Objective Micro and Labs Date/Time Source Procedure Growth Status 08/28/17 17:20 Urine Catheterized Urine Urine Culture - Final Staphylococcus Epidermidis Complete Problem Qualifiers (1) HTN (hypertension): Qualified Codes: I10 - Essential (primary) hypertension Onel Vang MD Sep 02, 2017 12:14
[2017-09-02] MEDS ORDERED: cloNIDine HCL 0.2 MG TAB PO PRN (13:15)
[2017-09-03] VITALS (8 sets, daily range): BP systolic 109–149; BP diastolic 55–80; PULSE 62–68; RESP 15–22; TEMP 97.5–98.1; O2SAT 94–97
[2017-09-03] MEDS: ACETAMINOPHEN/HYDROcodone 325 MG/5 MG TAB PO PRN ×4 (03:30→23:20)
[2017-09-03] MEDS: CHLORHEXIDINE GLUCONATE 2 % 1 PACK (2 CLOTHS) TOP SCH (04:00)
[2017-09-03] MEDS: LEVOTHYROXINE SODIUM 112 MCG TAB PO SCH (06:00)
[2017-09-03] MEDS: HYDROCORTISONE 1% CREAM 30 GM TOPICAL SCH ×2 (06:02→17:39)
[2017-09-03] MEDS: LEVOTHYROXINE SODIUM 25 MCG TAB PO SCH (06:02)
[2017-09-03] MEDS: INSULIN NovoLIN REGULAR SUPPLEMENTAL SCALE SQ SCH ×4 (08:00→21:46)
--- NOTE | 2017-09-03 08:58 | HHI.PR ---
Review/Management Diagnosis/Plan: (1) Acute ischemic left MCA stroke ICD Codes: I63.512 - Cerebral infarction due to unspecified occlusion or stenosis of left middle cerebral artery Status: Acute Plan: Acute left lacunar infarct, Left NIKITA/MCA region Left MCA thrombus Cardiac ECHO with 60-65%,, left atrium is normal in size Right ICA stenosis Assessment and recommendations can be dc'd to rehab from icu from neuro apparently no beds on floor therapy bp control aspirin (2) Chronic ischemic left MCA stroke ICD Codes: I69.30 - Unspecified sequelae of cerebral infarction Status: Chronic (3) HTN (hypertension) ICD Codes: I10 - Essential (primary) hypertension Status: Chronic (4) Carotid stenosis, right ICD Codes: I65.21 - Occlusion and stenosis of right carotid artery Status: Chronic Subjective Subjective Comments No acute events reported No headache No chest pain No dyspnea Active Medications Current Medications Medications (Trade) Dose Ordered Sig/Kaye Route Start Time Stop Time Status Last Admin Nicardipine HCl 25 mg/Sodium Chloride 250 ml @ 0 mls/hr TITRATE PRN IV 08/28/17 17:30 08/28/17 17:39 (Zyloprim) 100 mg DAILY PO 08/29/17 09:00 09/02/17 09:39 (Vasotec) 20 mg DAILY PO 08/29/17 09:00 09/02/17 09:39 (Proscar) 5 mg DAILY PO 08/29/17 09:00 09/02/17 09:40 (Neurontin) 600 mg TID PO 08/29/17 09:00 09/02/17 17:32 (Synthroid) 112 mcg DAILY@0600 PO 08/29/17 06:00 09/03/17 06:00 (NS Flush) 2 ml UNSCH PRN IV FLUSH 08/28/17 18:45 (NS Flush) 2 ml BID IV FLUSH 08/28/17 21:00 09/02/17 20:24 (Tylenol) 650 mg Q6H PRN PO 08/28/17 18:45 09/02/17 09:39 (Pepcid Inj) 20 mg Q12HR IV PUSH 08/28/17 21:00 09/02/17 20:24 (Zofran Inj) 4 mg Q6H PRN IV PUSH 08/28/17 18:45 08/29/17 14:45 (Duoneb Neb) 1 ampule Q2HR NEB PRN INH 08/28/17 18:45 Miscellaneous Information 1 Q361D XX 08/28/17 18:45 (Chlorhexidine 2% Cloth) Taper DAILY@04 TOP 08/29/17 04:00 08/25/18 03:59 (Chlorhexidine 2% Cloth) 3 pack UNSCH PRN TOP 08/28/17 18:45 (Agnieszka-Colace) 1 tab BID PO 08/28/17 21:00 09/02/17 20:24 (Milk Of Magnesia Liq) 30 ml Q12H PRN PO 08/28/17 18:45 (Senokot) 17.2 mg Q12H PRN PO 08/28/17 18:45 (Dulcolax Supp) 10 mg DAILY PRN RECTAL 08/28/17 18:45 (Lactulose Liq) 30 ml DAILY PRN PO 08/28/17 18:45 (Synthroid) 25 mcg DAILY@0600 PO 08/29/17 06:00 09/03/17 06:02 (D50w (Vial) Inj) 50 ml UNSCH PRN IV PUSH 08/29/17 00:45 (Glucagon Inj) 1 mg UNSCH PRN OTHER 08/29/17 00:45 (NovoLIN R SUPPLEMENTAL SCALE) 1 ACHS SLIDING SCALE SQ 08/29/17 08:00 09/02/17 20:55 (Heparin Inj) 5,000 units BID SQ 08/30/17 09:00 09/02/17 20:25 (Ecotrin Ec) 325 mg DAILY PO 08/31/17 09:00 09/02/17 09:39 ([place] 5-325 Mg) 1 tab Q4H PRN PO 08/31/17 13:45 09/03/17 03:30 (Hydrocortisone 1% Cream) 1 applic Q12H TOPICAL 09/01/17 18:00 09/03/17 06:02 (Norvasc) 10 mg DAILY PO 09/03/17 09:00 (Catapres) 0.2 mg Q6H PRN PO 09/02/17 13:15 09/02/17 13:42 Allergies Allergies Coded Allergies onion (Unverified Allergy, Severe, SWELLING OF EYES AND LIPS, 08/28/17) codeine (Unverified Adverse Reaction, Severe, UNKNOWN REACTION, 08/28/17) Review of Systems All other ROS: ROS reviewed as documented in chart Exam I&O / VS Vital Signs Date Time Temp Pulse Resp B/P (MAP) Pulse Ox O2 Delivery O2 Flow Rate FiO2 09/03/17 08:26 96 21 09/03/17 04:30 20 09/03/17 04:00 62 09/03/17 04:00 97.5 62 20 129/60 (83) 95 09/03/17 00:00 98.0 65 16 109/55 (73) 95 09/03/17 00:00 65 09/02/17 20:00 65 09/02/17 20:00 98.6 65 16 101/55 (70) 95 09/02/17 19:00 94 Room Air 09/02/17 16:00 97.9 64 14 118/61 (80) 94 09/02/17 16:00 64 09/02/17 12:00 97.7 78 20 180/84 (116) 98 09/02/17 12:00 78 General: No acute distress Eye: EOMI Respiratory: Lungs CTA, Non-labored respirations Cardiology: Normal rate Neurologic: Alert Psychiatric: Cooperative Exam Comments alerts, follows some motor requests, abulia? closes eyes, eomi, no gaze preference, reduced rt nlf, vff, rt hemiplegia 0/5 strength, maria dolores le reduced pin , dysmetria proportional to level of weakness in ue, nihss 11 Objective Micro and Labs Date/Time Source Procedure Growth Status 08/28/17 17:20 Urine Catheterized Urine Urine Culture - Final Staphylococcus Epidermidis Complete Problem Qualifiers (1) HTN (hypertension): Qualified Codes: I10 - Essential (primary) hypertension Quoc Harrington MD Sep 03, 2017 08:58
[2017-09-03] MEDS: ALLOPURINOL 100 MG TAB PO SCH (09:27)
[2017-09-03] MEDS: ASPIRIN EC 325 MG TABEC PO SCH (09:27)
[2017-09-03] MEDS: FINASTERIDE 5 MG TAB PO SCH (09:27)
[2017-09-03] MEDS: DOCUSATE SODIUM 50 MG/SENNA 8.6 MG TAB PO SCH ×2 (09:27→20:04)
[2017-09-03] MEDS: ENALAPRIL MALEATE 10 MG TAB PO SCH (09:28)
[2017-09-03] MEDS: HEPARIN SODIUM - SQ 10,000 UNITS/ML VIAL SQ SCH ×2 (09:28→20:06)
[2017-09-03] MEDS: SODIUM CHLORIDE 0.9% FLUSH 10 ML FLUSH IV FLUSH SCH ×2 (09:28→20:04)
[2017-09-03] MEDS: FAMOTIDINE 20 MG/2 ML VIAL IV PUSH SCH ×2 (09:28→20:04)
[2017-09-03] MEDS: GABAPENTIN 300 MG CAP PO SCH ×3 (09:28→17:39)
--- NOTE | 2017-09-03 12:19 | HHI.CCPN ---
Subjective Remarks/Hospital Course 08/28: 81-year-old male, shortly after leaving the doctor's office today he drove home. En route he developed weakness on the right side and some aphasia. He drove off the side of the road and EMS was activated. There he was found to have weakness in the right lower right leg and was brought to the ED as a stroke alert. He denies pain here in the ER. Duration has been since about 40 minutes prior to ER arrival. Location neurologic as well as right upper right lower side. The TPA was administered by IV infusion, and the patient went to CT for CTA. The CT of the head shows nonocclusive thrombus in left MCA artery and patient was transferred to interventional radiology for for the procedure. 08/29: Resting comfortably. Right-sided weakness persists. Following commands. 08/30: Breathing comfortably. Recurrent episodes chest pain treated with NTG - chronic problem. Heart rate well controlled at 60 but SBP 180s s/p CVA, tPA. May need to moderate permissive hypertension in view of angina. 08/31: No chest pain. Breathing comfortably, protects airway, swallow intact. 09/01: Pain control much improved. 09/02: No more angina. BP and heart rate control acceptable. Benadryl given for itching back/hives, may have made him sleepy. Will need rehab. 09/03: No angina. BP good control. Needs Rehab placement. Objective Vital Signs Date Time Temp Pulse Resp B/P (MAP) Pulse Ox O2 Delivery O2 Flow Rate FiO2 09/03/17 08:26 96 21 09/03/17 04:30 20 09/03/17 04:00 62 09/03/17 04:00 97.5 129/60 (83) 09/02/17 19:00 Room Air 09/01/17 08:15 3.00 Intake and Output 09/03/17 09/03/17 09/04/17 08:00 16:00 00:00 Intake Total 50 ml Output Total 500 ml Balance -450 ml Result Diagram: 08/30/17 0046 Imaging Last Impressions Neck CTA 08/28/17 0000 Signed Impressions: Service Date/Time: Monday, August 28, 2017 18:43 - CONCLUSION: 1. High- grade stenosis estimated at approximately 90%% involving the right internal carotid artery just distal to the bifurcation. This is related to calcified plaque combined with a large amount of soft plaque and/or mural/eccentric thrombus. The vessel was narrowed over approximately 21 mm in length. 2. Bilateral carotids are tortuous. No other areas of significant narrowing are demonstrated. River Tejada MD Head Magnetic Resonance Angiography 08/28/17 Signed Impressions: Service Date/Time: Monday, August 28, 2017 19:18 - CONCLUSION: Nonocclusive thrombus distally of the left middle cerebral artery. River Tejada MD Head CTA 08/28/17 Signed Impressions: Service Date/Time: Monday, August 28, 2017 18:43 - CONCLUSION: Short segment , nonocclusive thrombosis of the left middle cerebral artery. Please see above. River Tejada MD Head CT 08/28/17 Signed Impressions: Service Date/Time: Monday, August 28, 2017 16:54 - CONCLUSION: 1. Small chronic area of encephalomalacia involving the left frontal lobe. 2. No acute hemorrhage or mass effect. Girma Lau MD Cerebral Arteriogram 08/28/17 Signed Impressions: Service Date/Time: Monday, August 28, 2017 23:36 - CONCLUSION: 1. Extremely challenging arch anatomy with marked angulation of the carotid origin. Prolonged cannulation attempt utilizing multiple wires and catheters was unsuccessful in advancing catheter beyond the proximal left common carotid. Procedure was terminated following extended cannulation attempt and loss of femoral access from multiple sheath exchanges, as above. Robles Camarillo MD Carotid Artery Ultrasound 08/28/17 Signed Impressions: Service Date/Time: Monday, August 28, 2017 18:11 - CONCLUSION: 1. Severe atherosclerosis of the right carotid bifurcation with high-grade and hemodynamically significant stenosis of the proximal ICA. 2. Mild atherosclerosis of the left carotid bifurcation without narrowing. River Tejada MD Brain MRI 08/28/17 0000 Signed Impressions: Service Date/Time: Monday, August 28, 2017 19:18 - CONCLUSION: 1. No acute infarct. 2. Old, small left frontal lobe cortical infarct. 3. Mild to moderate chronic white matter changes. 4. Paranasal sinus disease. River Tejada MD Objective Remarks GENERAL: 81-year-old male. SKIN: Warm and dry. HEAD: Atraumatic. Normocephalic. EYES: Pupils equal and round. No scleral icterus. ENT: No nasal bleeding or discharge. Controls secretions. NECK: Trachea midline. Airway widely patent. No obstruction. Strong cough. CARDIOVASCULAR: Regular rate and rhythm. No JVD. NL S1S2. RESPIRATORY: No accessory muscle use. Clear to auscultation. Breath sounds equal bilaterally. Comfortable pattern. GASTROINTESTINAL: Soft. No focus of tenderness. No guarding. BS active. MUSCULOSKELETAL: Extremities without clubbing, cyanosis, or edema. No obvious deformities. Well perfused. NEUROLOGICAL: Awake alert, following commands. Aphasic, weak hand grasp right upper extremity, otherwise cannot move right upper extremity or right lower extremity. Left upper and lower extremely grade 5 power. A/P Assessment and Plan Acute CVA - Left MCA thrombus - Status post TPA administration - IR intervention unsuccessful - Ischemic workup per neurology - PT and OT as tolerated Hypertension - d/c Nicardipine drip to keep SBP less than 180 and diastolic blood pressure less than 100 - Norvasc - Lisinopril CAD/angina - Pulse rate well controlled. - May need to tighten BP control. Diabetes - Hold by mouth antidiabetic meds while in the ICU - Insulin sliding scale Gout - Allopurinol Hypothyroidism - Thyroxine Diabetic neuropathy - Gabapentin DVT GI prophylaxis - Teds SCDs - Pepcid Overall impression: Stable hemodynamic and respiratory function s/p CVA and tPA. Persistent right sided weakness. Chronic stable angina. Transfer to floor, rehab. Dayron Crystal MD Sep 03, 2017 12:19
[2017-09-04] VITALS (8 sets, daily range): BP systolic 121–178; BP diastolic 57–85; PULSE 58–66; RESP 12–20; TEMP 97.4–98.9; O2SAT 92–96
[2017-09-04] MEDS: CHLORHEXIDINE GLUCONATE 2 % 1 PACK (2 CLOTHS) TOP SCH (04:00)
[2017-09-04] MEDS: HYDROCORTISONE 1% CREAM 30 GM TOPICAL SCH ×2 (06:00→17:19)
[2017-09-04] MEDS: LEVOTHYROXINE SODIUM 25 MCG TAB PO SCH (06:25)
[2017-09-04] MEDS: LEVOTHYROXINE SODIUM 112 MCG TAB PO SCH (06:25)
[2017-09-04] MEDS: INSULIN NovoLIN REGULAR SUPPLEMENTAL SCALE SQ SCH ×4 (08:00→21:17)
[2017-09-04] MEDS: ACETAMINOPHEN/HYDROcodone 325 MG/5 MG TAB PO PRN (08:33)
[2017-09-04] MEDS: SODIUM CHLORIDE 0.9% FLUSH 10 ML FLUSH IV FLUSH SCH ×2 (09:00→20:53)
--- NOTE | 2017-09-04 09:09 | HHI.PR ---
Review/Management Diagnosis/Plan: (1) Acute ischemic left MCA stroke ICD Codes: I63.512 - Cerebral infarction due to unspecified occlusion or stenosis of left middle cerebral artery Status: Acute Plan: Acute left lacunar infarct, Left NIKITA/MCA region Left MCA thrombus Cardiac ECHO with 60-65%,, left atrium is normal in size Right ICA stenosis Assessment and recommendations neuro stable bp in good range can be dc'd to rehab from icu from neuro therapy bp control aspirin (2) Chronic ischemic left MCA stroke ICD Codes: I69.30 - Unspecified sequelae of cerebral infarction Status: Chronic (3) HTN (hypertension) ICD Codes: I10 - Essential (primary) hypertension Status: Chronic (4) Carotid stenosis, right ICD Codes: I65.21 - Occlusion and stenosis of right carotid artery Status: Chronic Subjective Subjective Comments No acute events reported No headache No chest pain No dyspnea Active Medications Current Medications Medications (Trade) Dose Ordered Sig/Kaye Route Start Time Stop Time Status Last Admin Nicardipine HCl 25 mg/Sodium Chloride 250 ml @ 0 mls/hr TITRATE PRN IV 08/28/17 17:30 08/28/17 17:39 (Zyloprim) 100 mg DAILY PO 08/29/17 09:00 09/03/17 09:27 (Vasotec) 20 mg DAILY PO 08/29/17 09:00 09/03/17 09:28 (Proscar) 5 mg DAILY PO 08/29/17 09:00 09/03/17 09:27 (Neurontin) 600 mg TID PO 08/29/17 09:00 09/03/17 17:39 (Synthroid) 112 mcg DAILY@0600 PO 08/29/17 06:00 09/04/17 06:25 (NS Flush) 2 ml UNSCH PRN IV FLUSH 08/28/17 18:45 (NS Flush) 2 ml BID IV FLUSH 08/28/17 21:00 09/03/17 20:04 (Tylenol) 650 mg Q6H PRN PO 08/28/17 18:45 09/02/17 09:39 (Pepcid Inj) 20 mg Q12HR IV PUSH 08/28/17 21:00 09/03/17 20:04 (Zofran Inj) 4 mg Q6H PRN IV PUSH 08/28/17 18:45 08/29/17 14:45 (Duoneb Neb) 1 ampule Q2HR NEB PRN INH 08/28/17 18:45 Miscellaneous Information 1 Q361D XX 08/28/17 18:45 (Chlorhexidine 2% Cloth) Taper DAILY@04 TOP 08/29/17 04:00 08/25/18 03:59 (Chlorhexidine 2% Cloth) 3 pack UNSCH PRN TOP 08/28/17 18:45 (Agnieszka-Colace) 1 tab BID PO 08/28/17 21:00 09/03/17 20:04 (Milk Of Magnesia Liq) 30 ml Q12H PRN PO 08/28/17 18:45 09/03/17 23:20 (Senokot) 17.2 mg Q12H PRN PO 08/28/17 18:45 (Dulcolax Supp) 10 mg DAILY PRN RECTAL 08/28/17 18:45 (Lactulose Liq) 30 ml DAILY PRN PO 08/28/17 18:45 (Synthroid) 25 mcg DAILY@0600 PO 08/29/17 06:00 09/04/17 06:25 (D50w (Vial) Inj) 50 ml UNSCH PRN IV PUSH 08/29/17 00:45 (Glucagon Inj) 1 mg UNSCH PRN OTHER 08/29/17 00:45 (NovoLIN R SUPPLEMENTAL SCALE) 1 ACHS SLIDING SCALE SQ 08/29/17 08:00 09/03/17 21:46 (Heparin Inj) 5,000 units BID SQ 08/30/17 09:00 09/03/17 20:06 (Ecotrin Ec) 325 mg DAILY PO 08/31/17 09:00 09/03/17 09:27 ([place] 5-325 Mg) 1 tab Q4H PRN PO 08/31/17 13:45 09/04/17 08:33 (Hydrocortisone 1% Cream) 1 applic Q12H TOPICAL 09/01/17 18:00 09/04/17 06:00 (Norvasc) 10 mg DAILY PO 09/03/17 09:00 09/03/17 09:27 (Catapres) 0.2 mg Q6H PRN PO 09/02/17 13:15 09/02/17 13:42 Allergies Allergies Coded Allergies onion (Unverified Allergy, Severe, SWELLING OF EYES AND LIPS, 08/28/17) codeine (Unverified Adverse Reaction, Severe, UNKNOWN REACTION, 08/28/17) Review of Systems All other ROS: ROS reviewed as documented in chart Exam I&O / VS Vital Signs Date Time Temp Pulse Resp B/P (MAP) Pulse Ox O2 Delivery O2 Flow Rate FiO2 09/04/17 04:00 58 09/04/17 04:00 98.2 58 13 137/65 (89) 92 09/04/17 00:28 92 21 09/04/17 00:20 13 09/04/17 00:00 97.4 58 13 121/57 (78) 94 09/04/17 00:00 58 09/03/17 21:58 95 09/03/17 20:00 98.0 65 15 110/80 (90) 94 09/03/17 20:00 65 09/03/17 19:00 94 Room Air 09/03/17 16:00 68 09/03/17 16:00 98.1 68 22 123/59 (80) 95 09/03/17 12:00 68 09/03/17 12:00 97.7 68 19 142/66 (91) 97 General: No acute distress Eye: EOMI Respiratory: Lungs CTA, Non-labored respirations Cardiology: Normal rate Neurologic: Alert Psychiatric: Cooperative Exam Comments alerts, follows some motor requests, states his name, dysfluency, closes eyes, eomi, no gaze preference, reduced rt nlf, vff, rt hemiplegia 0/5 strength, maria dolores le reduced pin, dysmetria proportional to level of weakness in ue, nihss 10 Objective Micro and Labs Date/Time Source Procedure Growth Status 08/28/17 17:20 Urine Catheterized Urine Urine Culture - Final Staphylococcus Epidermidis Complete Problem Qualifiers (1) HTN (hypertension): Qualified Codes: I10 - Essential (primary) hypertension Quoc Harrington MD Sep 04, 2017 09:09
[2017-09-04] MEDS: DOCUSATE SODIUM 50 MG/SENNA 8.6 MG TAB PO SCH ×2 (09:40→20:53)
[2017-09-04] MEDS: GABAPENTIN 300 MG CAP PO SCH ×3 (09:41→17:19)
[2017-09-04] MEDS: ALLOPURINOL 100 MG TAB PO SCH (09:41)
[2017-09-04] MEDS: ASPIRIN EC 325 MG TABEC PO SCH (09:41)
[2017-09-04] MEDS: ENALAPRIL MALEATE 10 MG TAB PO SCH (09:41)
[2017-09-04] MEDS: FINASTERIDE 5 MG TAB PO SCH (09:41)
[2017-09-04] MEDS: HEPARIN SODIUM - SQ 10,000 UNITS/ML VIAL SQ SCH ×2 (09:42→20:54)
[2017-09-04] MEDS: FAMOTIDINE 20 MG/2 ML VIAL IV PUSH SCH ×2 (09:42→20:53)
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
[2017-09-05] VITALS: BP 139/66; PULSE 62; RESP 15; TEMP 98.5; O2SAT 95
[2017-09-05] MEDS: CHLORHEXIDINE GLUCONATE 2 % 1 PACK (2 CLOTHS) TOP SCH (03:56)
[2017-09-05 04:00] VITALS: BP 136/61; PULSE 60; RESP 19; TEMP 98.2; O2SAT 93
[2017-09-05 05:56] LABS: AUTOMATED NEUTROPHIL # 5.6 TH/MM3 (1.8-7.7); BASOPHIL # 0.1 TH/MM3 (0-0.2); BASOPHIL % 0.8 % (0.0-2.0); EOSINOPHIL # 0.3 TH/MM3 (0-0.4); EOSINOPHIL % 3.8 % (0.0-4.0); HEMATOCRIT 39.4 % (39.0-51.0); HEMOGLOBIN 13.1 GM/DL (13.0-17.0); LYMPH % 18.1 % (9.0-44.0); LYMPHOCYTE # 1.5 TH/MM3 (1.0-4.8); MEAN CELL VOLUME 92.7 FL (80.0-100.0); MEAN CORPUSCULAR HEMOGLOBIN 30.9 PG (27.0-34.0); MEAN CORPUSCULAR HGB CONC 33.4 % (32.0-36.0); MEAN PLATELET VOLUME 8.3 FL (7.0-11.0); MONO % 8.8 % (0.0-8.0); MONOCYTE # 0.7 TH/MM3 (0-0.9); NEUT % 68.5 % (16.0-70.0); PLATELET COUNT 171 TH/MM3 (150-450); RED BLOOD COUNT 4.24 MIL/MM3 (4.50-5.90); RED CELL DISTRIBUTION WIDTH 14.1 % (11.6-17.2); WHITE BLOOD COUNT 8.2 TH/MM3 (4.0-11.0)
[2017-09-05] MEDS: HYDROCORTISONE 1% CREAM 30 GM TOPICAL SCH ×2 (06:08→18:00)
[2017-09-05] MEDS: LEVOTHYROXINE SODIUM 112 MCG TAB PO SCH (06:08)
[2017-09-05] MEDS: LEVOTHYROXINE SODIUM 25 MCG TAB PO SCH (06:08)
[2017-09-05 06:25] LABS: BICARBONATE 27.2 MEQ/L (21.0-32.0); CALCIUM 8.7 MG/DL (8.5-10.1); CREATININE 0.95 MG/DL (0.60-1.30)
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
[2017-09-05] MEDS: INSULIN NovoLIN REGULAR SUPPLEMENTAL SCALE SQ SCH ×4 (07:27→21:16)
--- NOTE | 2017-09-05 07:41 | HHI.PR ---
Review/Management Diagnosis/Plan: (1) Acute ischemic left MCA stroke ICD Codes: I63.512 - Cerebral infarction due to unspecified occlusion or stenosis of left middle cerebral artery Status: Acute Plan: Acute left lacunar infarct, Left NIKITA/MCA region Left MCA thrombus Cardiac ECHO with 60-65%,, left atrium is normal in size Right ICA stenosis Assessment and recommendations neuro stable; persistent deficit rehab md consulted 08/31 for perez can be dc'd to rehab from icu from neuro- case management therapy bp control aspirin (2) Chronic ischemic left MCA stroke ICD Codes: I69.30 - Unspecified sequelae of cerebral infarction Status: Chronic (3) HTN (hypertension) ICD Codes: I10 - Essential (primary) hypertension Status: Chronic (4) Carotid stenosis, right ICD Codes: I65.21 - Occlusion and stenosis of right carotid artery Status: Chronic Subjective Subjective Comments No acute events reported No headache No chest pain No dyspnea Active Medications Current Medications Medications (Trade) Dose Ordered Sig/Kaye Route Start Time Stop Time Status Last Admin Nicardipine HCl 25 mg/Sodium Chloride 250 ml @ 0 mls/hr TITRATE PRN IV 08/28/17 17:30 08/28/17 17:39 (Zyloprim) 100 mg DAILY PO 08/29/17 09:00 09/04/17 09:41 (Vasotec) 20 mg DAILY PO 08/29/17 09:00 09/04/17 09:41 (Proscar) 5 mg DAILY PO 08/29/17 09:00 09/04/17 09:41 (Neurontin) 600 mg TID PO 08/29/17 09:00 09/04/17 17:19 (Synthroid) 112 mcg DAILY@0600 PO 08/29/17 06:00 09/05/17 06:08 (NS Flush) 2 ml UNSCH PRN IV FLUSH 08/28/17 18:45 (NS Flush) 2 ml BID IV FLUSH 08/28/17 21:00 09/04/17 20:53 (Tylenol) 650 mg Q6H PRN PO 08/28/17 18:45 09/02/17 09:39 (Pepcid Inj) 20 mg Q12HR IV PUSH 08/28/17 21:00 09/04/17 20:53 (Zofran Inj) 4 mg Q6H PRN IV PUSH 08/28/17 18:45 08/29/17 14:45 (Duoneb Neb) 1 ampule Q2HR NEB PRN INH 08/28/17 18:45 Miscellaneous Information 1 Q361D XX 08/28/17 18:45 (Chlorhexidine 2% Cloth) Taper DAILY@04 TOP 08/29/17 04:00 08/25/18 03:59 (Chlorhexidine 2% Cloth) 3 pack UNSCH PRN TOP 08/28/17 18:45 (Agnieszka-Colace) 1 tab BID PO 08/28/17 21:00 09/04/17 20:53 (Milk Of Magnesia Liq) 30 ml Q12H PRN PO 08/28/17 18:45 09/03/17 23:20 (Senokot) 17.2 mg Q12H PRN PO 08/28/17 18:45 (Dulcolax Supp) 10 mg DAILY PRN RECTAL 08/28/17 18:45 (Lactulose Liq) 30 ml DAILY PRN PO 08/28/17 18:45 (Synthroid) 25 mcg DAILY@0600 PO 08/29/17 06:00 09/05/17 06:08 (D50w (Vial) Inj) 50 ml UNSCH PRN IV PUSH 08/29/17 00:45 (Glucagon Inj) 1 mg UNSCH PRN OTHER 08/29/17 00:45 (NovoLIN R SUPPLEMENTAL SCALE) 1 ACHS SLIDING SCALE SQ 08/29/17 08:00 09/04/17 21:17 (Heparin Inj) 5,000 units BID SQ 08/30/17 09:00 09/04/17 20:54 (Ecotrin Ec) 325 mg DAILY PO 08/31/17 09:00 09/04/17 09:41 (Cornelius 5-325 Mg) 1 tab Q4H PRN PO 08/31/17 13:45 09/04/17 08:33 (Hydrocortisone 1% Cream) 1 applic Q12H TOPICAL 09/01/17 18:00 09/05/17 06:08 (Norvasc) 10 mg DAILY PO 09/03/17 09:00 09/04/17 09:41 (Catapres) 0.2 mg Q6H PRN PO 09/02/17 13:15 09/02/17 13:42 Allergies Allergies Coded Allergies onion (Unverified Allergy, Severe, SWELLING OF EYES AND LIPS, 08/28/17) codeine (Unverified Adverse Reaction, Severe, UNKNOWN REACTION, 08/28/17) Review of Systems All other ROS: ROS reviewed as documented in chart Exam I&O / VS Vital Signs Date Time Temp Pulse Resp B/P (MAP) Pulse Ox O2 Delivery O2 Flow Rate FiO2 09/05/17 07:00 Room Air 09/05/17 04:00 60 09/05/17 04:00 98.2 60 19 136/61 (86) 93 09/05/17 00:00 62 09/05/17 00:00 98.5 62 15 139/66 (90) 95 09/04/17 20:00 66 09/04/17 20:00 97.6 66 15 129/69 (89) 94 09/04/17 19:00 94 Room Air 09/04/17 16:00 65 09/04/17 16:00 98.9 65 12 123/62 (82) 96 09/04/17 12:00 98.0 64 14 138/85 (102) 95 09/04/17 12:00 64 09/04/17 10:11 96 21 09/04/17 08:00 98.2 66 20 178/79 (112) 96 09/04/17 08:00 66 General: No acute distress Eye: EOMI Respiratory: Lungs CTA, Non-labored respirations Cardiology: Normal rate Neurologic: Alert Psychiatric: Cooperative Exam Comments alerts, follows some motor requests, states his name, dysfluency, closes eyes, eomi, no gaze preference, reduced rt nlf, vff, rt hemiplegia 0/5 strength, maria dolores le reduced pin, dysmetria proportional to level of weakness in ue, nihss 10 Objective Micro and Labs Laboratory Tests Test 09/05/17 03:31 White Blood Count 8.2 Red Blood Count 4.24 Hemoglobin 13.1 Hematocrit 39.4 Mean Corpuscular Volume 92.7 Mean Corpuscular Hemoglobin 30.9 Mean Corpuscular Hemoglobin Concent 33.4 Red Cell Distribution Width 14.1 Platelet Count 171 Mean Platelet Volume 8.3 Neutrophils (%) (Auto) 68.5 Lymphocytes (%) (Auto) 18.1 Monocytes (%) (Auto) 8.8 Eosinophils (%) (Auto) 3.8 Basophils (%) (Auto) 0.8 Neutrophils # (Auto) 5.6 Lymphocytes # (Auto) 1.5 Monocytes # (Auto) 0.7 Eosinophils # (Auto) 0.3 Basophils # (Auto) 0.1 CBC Comment DIFF FINAL Differential Comment Blood Urea Nitrogen 25 Creatinine 0.95 Random Glucose 129 Calcium Level 8.7 Sodium Level 138 Potassium Level 4.3 Chloride Level 104 Carbon Dioxide Level 27.2 Anion Gap 7 Estimat Glomerular Filtration Rate 76 Date/Time Source Procedure Growth Status 08/28/17 17:20 Urine Catheterized Urine Urine Culture - Final Staphylococcus Epidermidis Complete Problem Qualifiers (1) HTN (hypertension): Qualified Codes: I10 - Essential (primary) hypertension Quoc Harrington MD Sep 05, 2017 07:41
[2017-09-05 08:00] VITALS: BP 150/70; PULSE 67; RESP 18; TEMP 98.7; O2SAT 93
[2017-09-05] MEDS: ASPIRIN EC 325 MG TABEC PO SCH (08:17)
[2017-09-05] MEDS: SODIUM CHLORIDE 0.9% FLUSH 10 ML FLUSH IV FLUSH SCH ×2 (08:17→20:55)
[2017-09-05] MEDS: FAMOTIDINE 20 MG/2 ML VIAL IV PUSH SCH ×2 (08:17→20:56)
[2017-09-05] MEDS: HEPARIN SODIUM - SQ 10,000 UNITS/ML VIAL SQ SCH ×2 (08:18→20:56)
[2017-09-05] MEDS: FINASTERIDE 5 MG TAB PO SCH (08:18)
[2017-09-05] MEDS: ALLOPURINOL 100 MG TAB PO SCH (08:18)
[2017-09-05] MEDS: ENALAPRIL MALEATE 10 MG TAB PO SCH (08:18)
[2017-09-05] MEDS: DOCUSATE SODIUM 50 MG/SENNA 8.6 MG TAB PO SCH ×2 (08:18→20:56)
[2017-09-05] MEDS: GABAPENTIN 300 MG CAP PO SCH ×3 (08:18→18:21)
[2017-09-05 12:00] VITALS: BP 134/67; PULSE 70; RESP 23; TEMP 98.2; O2SAT 95
[2017-09-05 16:00] VITALS: BP 148/67; PULSE 69; RESP 17; TEMP 98.1; O2SAT 95
[2017-09-05 20:00] VITALS: BP 129/64; PULSE 70; RESP 16; TEMP 98.5; O2SAT 96
[2017-09-06] VITALS: BP 129/62; PULSE 62; PULSE 70; RESP 15; TEMP 98.5; O2SAT 92
[2017-09-06 04:00] VITALS: BP 155/72; PULSE 60; RESP 16; TEMP 97.5; O2SAT 95
[2017-09-06] MEDS: CHLORHEXIDINE GLUCONATE 2 % 1 PACK (2 CLOTHS) TOP SCH (04:00)
[2017-09-06] MEDS: HYDROCORTISONE 1% CREAM 30 GM TOPICAL SCH (05:00)
[2017-09-06] MEDS: LEVOTHYROXINE SODIUM 25 MCG TAB PO SCH (05:00)
[2017-09-06] MEDS: LEVOTHYROXINE SODIUM 112 MCG TAB PO SCH (05:00)
[2017-09-06] MEDS ORDERED: RESP: ALBUTEROL 2.5 MG/3 ML NEB (PRN) NEB (07:15)
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
[2017-09-06 08:00] VITALS: BP 136/64; PULSE 55; RESP 12; TEMP 98; O2SAT 94
[2017-09-06] MEDS: INSULIN NovoLIN REGULAR SUPPLEMENTAL SCALE SQ SCH ×2 (08:00→12:00)
[2017-09-06] MEDS: SODIUM CHLORIDE 0.9% FLUSH 10 ML FLUSH IV FLUSH SCH (08:51)
[2017-09-06] MEDS ORDERED: FAMOTIDINE 20 MG TAB PO SCH (09:00)
[2017-09-06] MEDS ORDERED: FINASTERIDE 5 MG TAB PO SCH (09:00)
[2017-09-06] MEDS: ASPIRIN EC 325 MG TABEC PO SCH (09:02)
[2017-09-06] MEDS: GABAPENTIN 300 MG CAP PO SCH ×2 (09:02→12:36)
[2017-09-06] MEDS: FINASTERIDE 5 MG TAB PO SCH (09:02)
[2017-09-06] MEDS: ALLOPURINOL 100 MG TAB PO SCH (09:03)
[2017-09-06] MEDS: ENALAPRIL MALEATE 10 MG TAB PO SCH (09:03)
[2017-09-06] MEDS: DOCUSATE SODIUM 50 MG/SENNA 8.6 MG TAB PO SCH (09:03)
[2017-09-06] MEDS: HEPARIN SODIUM - SQ 10,000 UNITS/ML VIAL SQ SCH (09:03)
[2017-09-06 12:00] VITALS: BP 130/62; PULSE 64; RESP 20; TEMP 98.1; O2SAT 94
[2017-09-06] MEDS ORDERED: ASPI325T33 PO (13:17)
[2017-09-06] MEDS ORDERED: LIPI10TA PO (13:17)
[2017-09-06] MEDS ORDERED: AMLO10 PO (13:17)
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
[2017-09-06] MEDS: ACETAMINOPHEN/HYDROcodone 325 MG/5 MG TAB PO PRN (14:53)
[2017-09-06 16:00] VITALS: BP 128/61; PULSE 70; RESP 20; TEMP 98.1; O2SAT 98
[2017-09-06] MEDS ORDERED: ATORVASTATIN 10 MG TAB PO SCH (21:00)
== END 2017-09-06 17:41 | DRG 62 ==
LOC: NEPE 16:42 → NEDA 18:23 → N03A 08-29 00:12
PROVIDERS: ADMIT Internal Medicine Critical Care Medicine; ATTEND Internal Medicine Critical Care Medicine
PROC: 3E03317 Introduction of Other Thrombolytic into Peripheral Vein, Percutaneous Approach (ICD-10-PCS; principal; 2017-08-28)
PROC: B3171ZZ Fluoroscopy of Left Internal Carotid Artery using Low Osmolar Contrast (ICD-10-PCS; 2017-08-28)
DX: I63.312 Cerebral infarction due to thrombosis of left middle cerebral artery (principal); I25.110 Atherosclerotic heart disease of native coronary artery with unstable angina pectoris; E11.40 Type 2 diabetes mellitus with diabetic neuropathy, unspecified; G81.91 Hemiplegia, unspecified affecting right dominant side; N39.0 Urinary tract infection, site not specified; R47.01 Aphasia; E03.9 Hypothyroidism, unspecified; I10 Essential (primary) hypertension; M10.9 Gout, unspecified; I65.21 Occlusion and stenosis of right carotid artery; H91.93 Unspecified hearing loss, bilateral; I44.0 Atrioventricular block, first degree; K21.9 Gastro-esophageal reflux disease without esophagitis; K44.9 Diaphragmatic hernia without obstruction or gangrene; N40.0 Benign prostatic hyperplasia without lower urinary tract symptoms; M19.90 Unspecified osteoarthritis, unspecified site; L29.9 Pruritus, unspecified; R21 Rash and other nonspecific skin eruption; B95.7 Other staphylococcus as the cause of diseases classified elsewhere; Z79.84 Long term (current) use of oral hypoglycemic drugs; Z88.5 Allergy status to narcotic agent
CPT/HCPCS: 36223; 51702; 70450; 70496; 70498; 70544; 70551; 76937; 80048; 80053; 80061; 80307; 81001; 82435; 82550; 82565; 82607; 82947; 82948; 83036; 83735; 84100; 84132; 84295; 84443; 84484; 84520; 85014; 85018; 85025; 85384; 85610; 85652; 85730; 86403; 86850; 86900; 86901; 87077; 87086; 87186; 87641; 93005; 93306; 93880; 96365; 96368; 96375; 99152; 99153; C1769; C1887; C1894; J1170; J1644; J2250; J2405; J2997; J3010; J7030; J7050; Q9967